=== PATIENT | male | born 1950 | race Two or more races ===

== ENCOUNTER 2024-08-07 14:47 | Inpatient (IN) | payer BC, MEDICAID ==
[~2024-08-07] VITALS: Ht 182.9 cm; Wt 131.4 kg
[2024-08-07 15:59] LABS: Basophils # (auto) 0.1 10 ^3/uL (0-0.2); Basophils % (auto) 1.4 % (0.0-2.0); Eosinophils # (auto) 0 10 ^3/uL (0-0.8); Eosinophils % (auto) 0.6 % (0.0-7.0); Hematocrit 35.8 % (41.0-53.0); Hemoglobin 12.1 g/dL (13.5-17.5); Lymphocytes # (auto) 1.4 10 ^3/uL (0.4-5.4); Lymphocytes % (auto) 28.8 % (10.0-50.0); Mean Corpuscular Hemoglobin 32.7 pg (28.0-32.0); Mean Corpuscular Hgb Conc. 33.9 g/dL (32.0-36.0); Mean Corpuscular Volume 96.4 fL (80.0-100.0); Monocytes # (auto) 0.6 10 ^3/uL (0-1.3); Monocytes % (auto) 11.7 % (0.0-12.0); Neutrophils # (auto) 2.7 10 ^3/uL (1.6-8.6); Neutrophils % (auto) 57.5 % (37.0-80.0); Nucleated Red Blood Cells % 0.4 %; Platelet Count (auto) 215 10^3/uL (140-450); Red Blood Cells 3.71 10^6/uL (4.5-5.90); Red Cell Distribution Width 14.3 % (11.8-14.3); White Blood Cell 4.8 10^3/uL (4.4-10.8)
[2024-08-07 16:16] LABS: INR 1.25 (0.9-1.15); Partial Thromboplastin Time 28.3 SEC (24.5-34.5)
[2024-08-07 16:21] LABS: Alanine Aminotransferase 31 U/L (7-40); Albumin 3.4 g/dL (3.2-4.8); Alkaline Phosphatase 82 U/L (46-116); Anion Gap 7 (5-15); Aspartate Aminotransferase 28 U/L (13-40); BUN/Creatinine Ratio 23.1 (10.0-20.0); Calcium 9.7 mg/dL (8.7-10.4); Chloride 100 mmol/L (98-107); Magnesium 1.9 mg/dL (1.6-2.6); Potassium 3.8 mmol/L (3.5-5.1); Sodium 139 mmol/L (136-145)
[2024-08-07 16:22] LABS: Bilirubin, Total 0.5 mg/dL (0.2-1.0); Total Protein 6.6 g/dL (5.7-8.2)
[2024-08-07 16:23] LABS: Blood Urea Nitrogen 27 mg/dL (9-23); Carbon Dioxide 32 mmol/L (20-31); Glucose 134 mg/dL (74-106)
--- NOTE | 2024-08-07 16:26 | DVH ---
XY CHEST PORTABLE, HISTORY: sob COMPARISON: None None TECHNICAL DATA: 1 view of the chest was obtained. FINDINGS: Lines and tubes: There is a cardiac pacer. Cardiomediastinal silhouette: Prominent Pulmonary vasculature: Prominent Lung expansion: low Lung airspace: Patchy right basilar opacity Lung interstitium: increased Pleura: normal Pneumothorax: no Bones: Unremarkable Other: no IMPRESSION: Cardiomegaly with pulmonary vascular congestion. Patchy right basilar opacity.
--- NOTE | 2024-08-07 16:59 | ED.PDOC ---
History of Present Illness HPI Comments 73 y/o M, with a Hx of CHF, HTN, and morbid obesity, presents with c/o bilateral leg swelling, today. Patient endorses on having leg swelling that extends from his ankles to his thighs and hips for the past 4x months that has been progressively worsening since initial gradual and unprovoked onset. He states on being seen, evaluated, admitted for COPD, and leaving [facility] from [facility] for symptoms 1x week ago. He admits to Hx of lasix use. He denies having any chest pain, shortness of breath, weakness, numbness, or pain to his legs, or other associated symptoms or modifiers at this time. Chief Complaint: Lower Extremity Time Seen by MD: 15:50 Primary Care Provider: none Reviewed Notes: Nurses Notes, Medications, Allergies Information Source: Patient Mode of Arrival: Wheelchair Severity: Moderate Timing: Hours Duration: Since onset Prehospital treatment: None Past Medical History PAST MEDICAL HISTORY: CHF, HTN Past Medical History (Other): morbid obesity Surgical History: Denies all surgeries Family History Family History: Unknown Social History Smoker: Non-Smoker Alcohol: Denies ETOH Use Drugs: Denies Drug Use Lives In: Home Other wheelchair use Musculoskeletal: reports: others (bilateral leg edema ) All Other Systems: Reviewed and Negative (negative unless otherwise stated above or in HPI) Physical Exam General Appearance: No Apparent Distress, Obese HEENT: Normal ENT Inspection, Pharynx Normal, TMs Normal Neck: Full Range of Motion, Non-Tender, Normal, Normal Inspection Respiratory: Chest Non-Tender, Lungs Clear, No Accessory Muscle Use, No Respiratory Distress, Normal Breath Sounds Cardiovascular: No Edema, No JVD, No Murmur, No Gallop, Normal Peripheral Pulses, Regular Rate/Rhythm Breast Exam: Deferred Gastrointestinal: No Organomegaly, Non Tender, No Pulsatile Mass, Normal Bowel Sounds, Soft Genitalia: Deferred Pelvic: Deferred Rectal: Deferred Extremities: Leg edema (bilateral pitting edema ), No calf tenderness, Normal capillary refill, No pedal edema, Swelling (swelling extending from ankles to thighs and hips ) Musculoskeletal : Apperance: Normal Neurologic: Alert, powder blender II-XII nml as Tested, No Motor Deficits, Normal Affect, Normal Mood, No Sensory Deficits Cerebellar Function: Normal Reflexes: Normal Skin: Dry, Normal Color, Warm Lymphatic: No Adenopathy Was a procedure done? Was a procedure done?: No Differential Dx Considerations may include: NSTEMI, CHF exacerbation, PE, ACS, cellulitis, dermatitis, X-Ray, Labs, Meds, VS Vital Signs Date Time Temp Pulse Resp B/P (MAP) Pulse Ox O2 Delivery O2 Flow Rate FiO2 08/07/24 15:11 97.5 93 20 117/63 (81) 95 Lab Test 08/07/24 16:28 08/07/24 15:45 Range/Units Troponin I High Sensitivity Pending 114 *H </=54 ng/L White Blood Count 4.8 4.4-10.8 10^3/uL Red Blood Count 3.71 L 4.5-5.90 10^6/uL Hemoglobin 12.1 L 13.5-17.5 g/dL Hematocrit 35.8 L 41.0-53.0 % Mean Corpuscular Volume 96.4 80.0-100.0 fL Mean Corpuscular Hemoglobin 32.7 H 28.0-32.0 pg Mean Corpuscular Hemoglobin Concent 33.9 32.0-36.0 g/dL Red Cell Distribution Width 14.3 11.8-14.3 % Platelet Count 215 140-450 10^3/uL Mean Platelet Volume 6.7 L 6.9-10.8 fL Neutrophils (%) (Auto) 57.5 37.0-80.0 % Lymphocytes (%) (Auto) 28.8 10.0-50.0 % Monocytes (%) (Auto) 11.7 0.0-12.0 % Eosinophils (%) (Auto) 0.6 0.0-7.0 % Basophils (%) (Auto) 1.4 0.0-2.0 % Neutrophils # (Auto) 2.7 1.6-8.6 10 ^3/uL Lymphocytes # (Auto) 1.4 0.4-5.4 10 ^3/uL Monocytes # (Auto) 0.6 0-1.3 10 ^3/uL Eosinophils # (Auto) 0 0-0.8 10 ^3/uL Basophils # (Auto) 0.1 0-0.2 10 ^3/uL Nucleated Red Blood Cells 0.4 % Prothrombin Time 13.0 H 9.3-11.8 sec Prothrombin Time INR 1.25 H 0.9-1.15 Activated Partial Thromboplast Time 28.3 24.5-34.5 SEC D-Dimer, Quantitative 1.83 H 0.0-0.49 mg/L FEU Sodium Level 139 136-145 mmol/L Potassium Level 3.8 3.5-5.1 mmol/L Chloride Level 100 98-107 mmol/L Carbon Dioxide Level 32 H 20-31 mmol/L Anion Gap 7 5-15 Blood Urea Nitrogen 27 H 9-23 mg/dL Creatinine 1.17 0.700-1.30 mg/dL Glomerular Filtration Rate Calc 66 >90 mL/min BUN/Creatinine Ratio 23.1 H 10.0-20.0 Serum Glucose 134 H 74-106 mg/dL Calcium Level 9.7 8.7-10.4 mg/dL Magnesium Level 1.9 1.6-2.6 mg/dL Total Bilirubin 0.5 0.2-1.0 mg/dL Aspartate Amino Transferase (AST) 28 13-40 U/L Alanine Aminotransferase (ALT) 31 7-40 U/L Alkaline Phosphatase 82 46-116 U/L B-Type Natriuretic Peptide 636.38 0-100 pg/mL Total Protein 6.6 5.7-8.2 g/dL Albumin 3.4 3.2-4.8 g/dL X-Ray, Labs, Meds, VS Comment This 52-year-old male presents secondary to increasing bilateral lower extremity edema. The patient uses a wheelchair. He was noted to have profound edema to his lower extremities up to his thighs. His x-ray was suggestive of CHF. He had elevated troponin. Secondary to his profound CHF and NSTEMI, he will be admitted to the hospitalist service for further workup and management. Time of 1ST Reevaluation: 16:20 Reevaluation 1ST: Unchanged Patient Education/Counseling: Diagnosis, Treatment Family Education/Counseling: No Family Present Departure 1 Departure Time of Disposition: 17:08 Impression: Primary Impression: NSTEMI (non-ST elevated myocardial infarction) Additional Impression: CHF (congestive heart failure) Disposition: 09 ADMITTED INPATIENT Condition: Guarded Critical Care Note Critical Care Time?: No Stability Stability form required: No Heart Score Heart Score: Heart Score Response (Comments) Value History Moderate Suspicious 1 Age >65 2 Risk Factors >3 or Hx ASHD 2 Troponin 1-2 x's Normal limit 1 Total 6 I personally scribed for FELY FLORES MD ([email or web address]) on 08/07/24 at 16:59. Electronically submitted by Ronald Garnica [email or web address]). FELY FLORES MD Aug 07, 2024 16:59
--- NOTE | 2024-08-07 17:47 | ECG ---
[facility] Test Date: 2024-08-07 Test Time: 17:38:47 Pat Name: JAYME QUEEN Department: ER Room: 0296T Gender: M Stogy Roller: PATRIZIA : 1950 Requested By: EFLY FLORES Order Number: [id number] Reading MD: Juancarlos Wu Measurements Intervals [place] Rate: 93 P: 0 [place]: 140 QRS: -71 QRSD: 74 T: 86 QT: 488 QTc: 608 Interpretive Statements Ventricular-paced complexes No further rhythm analysis attempted due to paced rhythm Left anterior fascicular block Low voltage, precordial leads Borderline T abnormalities, lateral leads Prolonged QT interval Baseline wander in lead(s) I,II,aVR,aVL,V1,V4 Electronically Signed On 08-09-2024 13:07:30 PST by Juancarlos Wu Please click the below link to view image of tracing.
[2024-08-07] MEDS ORDERED: ACETAMINOPHEN 325 MG TAB PO PRN (19:30)
[2024-08-07] MEDS ORDERED: MORPHINE SULFATE INJ 2 MG/ml SYRG IV PRN (19:30)
[2024-08-07] MEDS ORDERED: ONDANSETRON HCL 4 MG/2 ML VIAL IV PRN (19:30)
[2024-08-07] MEDS ORDERED: NITROGLYCERIN 0.4 MG SL TAB SL PRN (19:30)
[2024-08-07 20:00] VITALS: PULSE 86; RESP 18; O2SAT 96
[2024-08-07 22:06] VITALS: BP 117/63; PULSE 93; RESP 18; TEMP 98.1; O2SAT 95
[2024-08-07] MEDS: CARVEDILOL 3.125 MG TAB PO SCH (22:10)
[2024-08-07] MEDS: ATORVASTATIN 20 MG TAB PO SCH (22:10)
[2024-08-07] MEDS: FUROSEMIDE 40 MG/4 ML VIAL IV ONE (22:11)
[2024-08-07 23:30] LABS: Urine Bacteria None Seen /hpf (None Seen)
[2024-08-07 23:37] LABS: Urine Blood Negative /uL (Negative); Urine Clarity Clear (Clear); Urine Color Yellow (Yellow); Urine Protein, UAD Negative (Negative); Urine Specific Gravity 1.015 (1.001-1.035); Urine Squamous Epithelial Cell None Seen /hpf (<5); Urine Urobilinogen Normal (Negative); Urine WBC 1 /hpf (0 - 3); Urine pH 5.5 (5.0-9.0)
[2024-08-08] VITALS (8 sets, daily range): PULSE 85–100; RESP 15–20; O2SAT 95–100
[2024-08-08] MEDS: guaiFENesin-DM 100/10mg/5ml SYR PO PRN (00:44)
[2024-08-08] MEDS: ALBUTEROL SULF 2.5 MG/0.5ML(0.5%) NEB SOLN NEB PRN (04:36)
--- NOTE | 2024-08-08 04:45 | DVHHP2 ---
History of Present Illness Reason for Visit: Leg swelling History of Present Illness 73-year-old with a history of congestive heart failure presents for evaluation bilateral leg swelling. Patient reports a three day history worsening bilateral lower extremity swelling. He currently denies chest pain or shortness for breath. Denies a productive cough. Abdominal pain. Past Medical History Congestive heart failure hypertension Past Surgical History Denies Family History Noncontributory Smoke: No ALCOHOL: none Drugs: None Lives: with Family Review of Systems Review of Systems Review of systems are currently negative otherwise addressed HPI. Allergies: Coded Allergies: NO KNOWN ALLERGIES (Unverified , 08/07/24) Medications Current Medications Medications Dose Ordered Sig/Toni Route Start Time Stop Time Status Last Admin Dose Admin Carvedilol 3.125 mg Q12HR PO 08/07/24 22:00 08/07/24 22:10 3.125 MG Lisinopril 5 mg DAILY PO 08/08/24 10:00 Furosemide 20 mg BIDD IV 08/08/24 06:00 Aspirin 162 mg DAILY PO 08/08/24 10:00 Atorvastatin Calcium 10 mg HS PO 08/07/24 22:00 08/07/24 22:10 10 MG Azithromycin 250 ml @ 125 mls/hr DAILY IV 08/08/24 10:00 Albuterol 2.5 mg Q6HPRN PRN NEB 08/07/24 19:30 08/08/24 04:36 2.5 MG Ondansetron HCl 4 mg Q4HP PRN IV 08/07/24 19:30 Enoxaparin Sodium 40 mg DAILY SC 08/08/24 10:00 Acetaminophen 650 mg Q6HP PRN PO 08/07/24 19:30 Nitroglycerin 0.4 mg Q5MINP PRN SL 08/07/24 19:30 Morphine Sulfate 2 mg Q30M PRN IV 08/07/24 19:30 Guaifenesin/ Dextromethorphan 10 ml Q4HP PRN PO 08/08/24 00:15 Exam Vital Signs Vital Signs Date Time Temp Pulse Resp B/P (MAP) Pulse Ox O2 Delivery O2 Flow Rate FiO2 08/08/24 04:38 100 20 99 08/08/24 00:30 145/92 (109) 08/07/24 22:06 Room Air* 0 21 08/07/24 22:06 98.1 98.1 Exam Gen: 73-year-old male in mild distress Skin: Warm, dry, normal color and texture, no rash. HEENT: Normocephalic atraumatic, mucous membranes moist and pink. Neck: Cervical and supraclavicular nodes normal without enlargement, trachea is midline, thyroid gland is normal without masses. Pulmonary: Clear to auscultation and percussion bilaterally. Cardiac: Regular rate and rhythm. No murmur Abdomen: Soft, nontender, nondistended, bowel sounds present all 4 quadrants, no guarding, no rigidity, no organomegaly. Extremities: No cyanosis, clubbing, plus two bilateral pedal edema. Neuro: Cranial nerves II through XII grossly intact, normal affect and speech, no focal motor deficits. Labs/Xrays ORDERING PHYSICIAN: FELY FLORES MD PROCEDURE(s): CXRP - CHEST PORTABLE REASON: sob ORDER NUMBER(s): [id number], ACCESSION NUMBER(s): [id number] XY CHEST PORTABLE, HISTORY: sob COMPARISON: None None TECHNICAL DATA: 1 view of the chest was obtained. FINDINGS: Lines and tubes: There is a cardiac pacer. Cardiomediastinal silhouette: Prominent Pulmonary vasculature: Prominent Lung expansion: low Lung airspace: Patchy right basilar opacity Lung interstitium: increased Pleura: normal Pneumothorax: no Bones: Unremarkable Other: no IMPRESSION: Cardiomegaly with pulmonary vascular congestion. Patchy right basilar opacity. Labs Test 08/07/24 23:30 08/07/24 18:35 08/07/24 15:45 Range/Units Urine Color Yellow Yellow Urine Clarity Clear Clear Urine pH 5.5 5.0-9.0 Urine Specific [place] 1.015 1.001-1.035 Urine Protein Negative Negative Urine Ketones Negative Negative Urine Blood Negative Negative /uL Urine Nitrite Negative Negative Urine Bilirubin Negative Negative Urine Urobilinogen Normal Negative mg/dL Urine Leukocyte Esterase Negative Negative /uL Urine RBC 1 0 - 3 /hpf Urine WBC 1 0 - 3 /hpf Urine Squamous Epithelial Cells None seen <5 /hpf Urine Bacteria None seen None Seen /hpf Urine Glucose Normal Normal mg/dL Troponin I High Sensitivity 109 *H </=54 ng/L White Blood Count 4.8 4.4-10.8 10^3/uL Red Blood Count 3.71 L 4.5-5.90 10^6/uL Hemoglobin 12.1 L 13.5-17.5 g/dL Hematocrit 35.8 L 41.0-53.0 % Mean Corpuscular Volume 96.4 80.0-100.0 fL Mean Corpuscular Hemoglobin 32.7 H 28.0-32.0 pg Mean Corpuscular Hemoglobin Concent 33.9 32.0-36.0 g/dL Red Cell Distribution Width 14.3 11.8-14.3 % Platelet Count 215 140-450 10^3/uL Mean Platelet Volume 6.7 L 6.9-10.8 fL Neutrophils (%) (Auto) 57.5 37.0-80.0 % Lymphocytes (%) (Auto) 28.8 10.0-50.0 % Monocytes (%) (Auto) 11.7 0.0-12.0 % Eosinophils (%) (Auto) 0.6 0.0-7.0 % Basophils (%) (Auto) 1.4 0.0-2.0 % Neutrophils # (Auto) 2.7 1.6-8.6 10 ^3/uL Lymphocytes # (Auto) 1.4 0.4-5.4 10 ^3/uL Monocytes # (Auto) 0.6 0-1.3 10 ^3/uL Eosinophils # (Auto) 0 0-0.8 10 ^3/uL Basophils # (Auto) 0.1 0-0.2 10 ^3/uL Nucleated Red Blood Cells 0.4 % Prothrombin Time 13.0 H 9.3-11.8 sec Prothrombin Time INR 1.25 H 0.9-1.15 Activated Partial Thromboplast Time 28.3 24.5-34.5 SEC D-Dimer, Quantitative 1.83 H 0.0-0.49 mg/L FEU Sodium Level 139 136-145 mmol/L Potassium Level 3.8 3.5-5.1 mmol/L Chloride Level 100 98-107 mmol/L Carbon Dioxide Level 32 H 20-31 mmol/L Anion Gap 7 5-15 Blood Urea Nitrogen 27 H 9-23 mg/dL Creatinine 1.17 0.700-1.30 mg/dL Glomerular Filtration Rate Calc 66 >90 mL/min BUN/Creatinine Ratio 23.1 H 10.0-20.0 Serum Glucose 134 H 74-106 mg/dL Calcium Level 9.7 8.7-10.4 mg/dL Magnesium Level 1.9 1.6-2.6 mg/dL Total Bilirubin 0.5 0.2-1.0 mg/dL Aspartate Amino Transferase (AST) 28 13-40 U/L Alanine Aminotransferase (ALT) 31 7-40 U/L Alkaline Phosphatase 82 46-116 U/L B-Type Natriuretic Peptide 636.38 0-100 pg/mL Total Protein 6.6 5.7-8.2 g/dL Albumin 3.4 3.2-4.8 g/dL Assessment/Plan Assessment/Plan Assessment acute on chronic congestive heart failure elevated troponin, downtrending Hypertension Plan Admit the patient to telemetry to the hospitalist Cardiology consultation Echocardiogram pending Resume home medications Continue treatment per orders Plan discussed with: Patient My Orders Orders - ROSANNA BARBER AGACNP Procedure Category Date Status Time Carvedilol Tablet PHA 08/07/24 In Process (Coreg Tablet) 22:00 Lisinopril Tablet PHA 08/08/24 In Process (Zestril Tablet) 10:00 Furosemide Injection PHA 08/08/24 In Process (Lasix Injection) 06:00 Aspirin Tablet PHA 08/08/24 In Process 10:00 Atorvastatin (Lipitor) PHA 08/07/24 In Process 22:00 * Cardiology Consult CONS 08/07/24 Transmitted 19:27 Azithromycin 500mg/ PHA 08/08/24 In Process 250ml (Zithromax 50 10:00 Albuterol Medneb PHA 08/07/24 In Process (Ventolin Medneb) 19:30 Basic Metabolic Panel LAB 08/08/24 Logged 04:00 Admit ADMIT 08/07/24 Transmitted 19:27 Ondansetron Hcl PHA 08/07/24 In Process (Zofran) 19:30 Enoxaparin Sodium PHA 08/08/24 In Process (Lovenox) 10:00 Cardiac DIET 08/08/24 Transmitted Diet-2gna,Lofat,Lochol Breakfast Echo 2d Mode Cardiac US 08/07/24 Logged DOP 19:27 Condition: Fair ALAN 08/07/24 In Process 19:27 Acetaminophen Tablet PHA 08/07/24 In Process (Tylenol Tablet) 19:30 Bedrest With Bathroom ALAN 08/07/24 In Process Privileg 19:27 Nitroglycerin [facility] 08/07/24 In Process Sublingual (Ntrostat 19:30 Morphine Sulfate PHA 08/07/24 In Process Injection 19:[address] [facility] 08/07/24 In Process Pain 19:27 Notify Md Of Changes [facility] 08/07/24 In Process From Base 19:27 Leaf Sucker Operator For [facility] 08/07/24 In Process 24 Hours 19:[address] [facility] 08/07/24 In Process Protocol 19:[address] [facility] 08/07/24 In Process Every Shift 19:27 Oxygen By Nasal RT 08/07/24 Transmitted Cannula 19:27 Guaifenesin-Dextromet [facility] 08/08/24 In Process Liquid (Robitussin 00:15 Bilat Lower Dvt 08/08/24 Logged 00:08 Date of Service: Aug 07, 2024 Billing Provider: ROSANNA BARBER Common Visit Codes: [id number] INP/OBS CARE (HIGH) ROSANNA BARBER Aug 08, 2024 04:45
[2024-08-08 05:55] LABS: Anion Gap 9 (5-15); Chloride 99 mmol/L (98-107); Potassium 3.6 mmol/L (3.5-5.1); Sodium 139 mmol/L (136-145)
[2024-08-08 05:57] LABS: Calcium 9.8 mg/dL (8.7-10.4)
[2024-08-08 06:01] LABS: Glucose 104 mg/dL (74-106)
[2024-08-08 06:03] LABS: Blood Urea Nitrogen 24 mg/dL (9-23); Carbon Dioxide 31 mmol/L (20-31)
[2024-08-08] MEDS: FUROSEMIDE 20 MG/2 ML VIAL IV SCH ×2 (06:10→18:01)
--- NOTE | 2024-08-08 07:35 | DVH ---
Bilateral lower extremity venous duplex Clinical History: edema Comparison: None Technique: Duplex Doppler evaluation of the deep venous systems of both lower extremities from the common femora l veins to the popliteal veins including color Doppler and spectral/pulsed waveform analysis was perf ormed. Findings: RIGHT SIDE: The common femoral vein demonstrates appropriate compressibility and waveform variability. There is compressibility/patency of the great saphenous vein at the proximal thigh. The femoral vein demonstrates appropriate compressibility and waveform variability. The deep femoral vein demonstrates appropriate compressibility and waveform variability. The popliteal vein demonstrates appropriate compressibility and waveform variability. There is normal compressibility at the tibioperoneal trunk. LEFT SIDE: The common femoral vein demonstrates appropriate compressibility and waveform variability. There is compressibility/patency of the great saphenous vein at the proximal thigh. The femoral vein demonstrates appropriate compressibility and waveform variability. The deep femoral vein demonstrates appropriate compressibility and waveform variability. The popliteal vein demonstrates appropriate compressibility and waveform variability. There is normal compressibility at the tibioperoneal trunk. Impression: No right or left femoropopliteal venous thrombosis.
[2024-08-08] MEDS: ASPirin 81 mg TAB PO SCH (09:50)
[2024-08-08] MEDS: LISINOPRIL 5 MG TAB PO SCH (09:51)
[2024-08-08] MEDS: ENOXAPARIN SOD 40 MG/0.4 ML SYRINGE SC SCH (09:52)
[2024-08-08] MEDS: AZITHROMYCIN 500MG/ 250ML 250 ML IV SCH (09:53)
--- NOTE | 2024-08-08 11:27 | DVH ---
CHEST RADIOGRAPH Indication: CHF pulmonary congestion Technique: Single frontal view of the chest was obtained Comparison: XY CHEST PORTABLE on DOS: 08/07/24 FINDINGS: Lines and Tubes: None Lungs: No focal consolidation. Pleura: No effusion. No pneumothorax. Cardiomediastinal contours: Cardiomegaly Bones: No acute osseous abnormality. IMPRESSION: Cardiomegaly with CHF
[2024-08-08 11:29] LABS: Triglycerides 64 mg/dL (< 150)
[2024-08-08 11:30] LABS: Cholesterol 95 mg/dL (< 200); LDL Cholesterol 33 mg/dL (< 100)
[2024-08-08 11:32] LABS: HDL Cholesterol 50 mg/dL (40-59)
--- NOTE | 2024-08-08 11:33 | DVH ---
EXAM: CT HEAD WITHOUT CONTRAST HISTORY: confusion COMPARISON: None TECHNIQUE: Axial images of the head were obtained and reformatted in coronal and sagittal planes. All CT scans at this medical facility are performed using dose modulation techniques as appropriate t o a performed exam including the following: Automated exposure control was utilized; adjustment of th e MA and/or KV according to patient size; and use of iterative reconstruction technique. CT Dose: CTDI volume is 69 mGy. 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 Ther e is a wedge parenchymal defect in the right posterolateral cerebellum which may represent additional chronic infarct. There are moderate to severe chronic small-vessel ischemic changes in the supratent orial white matter. There is no evidence of acute intracranial hemorrhage, mass, mass effect midline shift. There is no hydrocephalus or extra-axial fluid collection. There are retention cysts in the right maxillary sinus. Mastoid air cells are clear. The calvarium is intact. IMPRESSION: 1. No acute intracranial process. 2. Chronic ischemic changes as described above. HS:Y
[2024-08-08] MEDS: LIDOCAINE 2% TOPICAL JELLY 5 ML URJT TOP ONE (12:02)
[2024-08-08] MEDS: FUROSEMIDE 20 MG/2 ML VIAL IV ONE (12:18)
[2024-08-08] MEDS ORDERED: DEXTROSE (50%) 50ML SYRG IV PRN (12:30)
--- NOTE | 2024-08-08 13:17 | DVHCONRES ---
Date Seen: Aug 08, 2024 Resident Creating Document: ELDON CORTÉS RESIDENT Referring Physician Gerard Shen NP History of Present Illness This is a 73-year-old man with a past medical history of CHF, hypertension, pacemaker ( [employer] 2008,) and COPD presented to the ED with a chief complaint of bilateral lower extremity swelling and scrotal edema. According to the patient, he started experience the swelling about 3 days ago and it continues to get worse and it progress proximally and currently his scrotum is involved. Patient did mentioned that he ran out of his Lasix for the past 5 days. Whilst speaking with the patient, his brother was at the bedside. The brother mentioned that patient recently moved from [place] to stay with him. In [place], he was seeing a accountant systems but sure the diagnosis for which was being managed for. Brother also mention that the patient seemed to be confused and does not seem to remember quiet a bit from how he used to know him few years ago. Initial vitals in the ED revealed blood pressure of 117/63, heart rate of 19, RR of 20, and temperature 97.5. Twelve lead EKG shows ventricular paced rhythm with underlying AFib. Lab values showed, mildly elevated troponin of 114---> 109. Past Medical History Congestive heart failure, hypertension, AFib, COPD Past Surgical History Pacemaker implantation, 2008 Family History Both have both parents have heart problems Social History 10 pack years Alcohol half a pt every other day Allergies: Coded Allergies: NO KNOWN ALLERGIES (Unverified , 08/07/24) Current Medications Current Medications Medications (Trade) Dose Ordered Sig/Toni Route PRN Reason Start Time Stop Time Status Last Admin Carvedilol (Coreg Tablet) 3.125 mg Q12HR PO 08/07/24 22:00 08/08/24 09:52 Lisinopril (Zestril Tablet) 5 mg DAILY PO 08/08/24 10:00 08/08/24 09:51 Furosemide (Lasix Injection) 20 mg BIDD IV 08/08/24 06:00 08/08/24 10:46 DC 08/08/24 06:10 Aspirin 162 mg DAILY PO 08/08/24 10:00 08/08/24 09:50 Atorvastatin Calcium (Lipitor) 10 mg HS PO 08/07/24 22:00 08/07/24 22:10 Azithromycin 250 ml @ 125 mls/hr DAILY IV 08/08/24 10:00 08/08/24 09:53 Albuterol (Ventolin Medneb) 2.5 mg Q6HPRN PRN NEB SHORTNESS OF BREATH 08/07/24 19:30 08/08/24 12:24 DC 08/08/24 04:36 Ondansetron HCl (Zofran) 4 mg Q4HP PRN IV NAUSEA / VOMITING 08/07/24 19:30 Enoxaparin Sodium (Lovenox) 40 mg DAILY SC 08/08/24 10:00 08/08/24 09:52 Acetaminophen (Tylenol Tablet) 650 mg Q6HP PRN PO PAIN SCALE 1-3 OR TEMP>100.4 08/07/24 19:30 Nitroglycerin (Ntrostat Sublingual) 0.4 mg Q5MINP PRN SL FOR CHEST PAIN 08/07/24 19:30 Morphine Sulfate 2 mg Q30M PRN IV FOR CHEST PAIN 08/07/24 19:30 Guaifenesin/ Dextromethorphan (Robitussin-Dm Liquid) 10 ml Q4HP PRN PO FOR COUGH 08/08/24 00:15 Furosemide (Lasix Injection) 40 mg BIDD IV 08/08/24 18:00 Albuterol (Ventolin Medneb) 2.5 mg Q6HR NEB 08/08/24 12:30 Diagnostic Test (Pha) (Accu-Chek Comfort Curve T) 1 strip ACHS 08/08/24 17:00 UNV Insulin Human Regular (InsuLIN R) ACHS SC 08/08/24 17:00 UNV Dextrose 50 ml UD PRN IV Blood Sugar LESS THAN 60 08/08/24 12:30 UNV Sacubitril/ Valsartan (Entresto 24-26 Mg tab) 1 tab BID PO 08/08/24 22:00 UNV Spironolactone (Aldactone) 25 mg DAILY PO 08/09/24 10:00 UNV Empaglifozin (Jardiance) 10 mg DAILY PO 08/09/24 10:00 UNV Review of Systems Constitutional: Denies fever no chills no feeling of malaise HEENT: Denies headache, ear pain, ear discharges, conjunctivitis, nasal discharge throat pain Cardiovascular: Denies chest pain, palpitation, orthopnea, PND, or pedal edema Respiratory: Denies shortness of breath, cough cough, sputum production, hemoptysis, GI: Denies abdominal pain, nausea, vomiting, diarrhea, hematemesis, hematochezia, : scrotal edema, pain, Endocrine: Denies unintentional weight gain or weight loss, feeling of hot flashes, Nitin: Denies easy bruising, bleeding disorders, epistaxis Musculoskeletal: Denies joint pains, muscle aches Psych: No evidence of depression, margaux, suicidal ideation Vital Signs Vital Signs Date Time Temp Pulse Resp B/P (MAP) Pulse Ox O2 Delivery O2 Flow Rate FiO2 08/08/24 12:18 111/48 08/08/24 12:00 74 08/08/24 11:20 18 96 08/08/24 07:34 98.4 98.4 08/08/24 07:34 Nasal Cannula* 3 32 Physical Exam General examination- Moderate acute distress on 3L Oxygen. does not use oxygen at home HEENT: PEERLA, no acute nasal discharge Chest: irregularly irregular rhythm and rate, no murmur Lung: wheeze or rhonchi Abdomen: Distend, BS+, nontenderness, no organomegaly Musculoskeletal: no acute joint swelling or tenderness Lower extremity: no leg edema Neurological: cranial nerves intact, no acute dysarthria or dysphagia Psychiatry-- Normal mood and affect Skin- no acute rash or purpura Labs/Diagnostic Data Labs Test 08/08/24 05:22 08/07/24 23:30 08/07/24 18:35 08/07/24 15:45 Range/Units Sodium Level 139 136-145 mmol/L Potassium Level 3.6 3.5-5.1 mmol/L Chloride Level 99 98-107 mmol/L Carbon Dioxide Level 31 20-31 mmol/L Anion Gap 9 5-15 Blood Urea Nitrogen 24 H 9-23 mg/dL Creatinine 0.96 0.700-1.30 mg/dL Glomerular Filtration Rate Calc 83 >90 mL/min BUN/Creatinine Ratio 25.0 H 10.0-20.0 Serum Glucose 104 74-106 mg/dL Hemoglobin A1c 6.7 H <5.7 % A1C Calcium Level 9.8 8.7-10.4 mg/dL Triglycerides Level 64 < 150 mg/dL Cholesterol Level 95 < 200 mg/dL LDL Cholesterol 33 < 100 mg/dL HDL Cholesterol 50 40-59 mg/dL Thyroid Stimulating Hormone (TSH) 1.27 0.55-4.78 uIU/mL Urine Color Yellow Yellow Urine Clarity Clear Clear Urine pH 5.5 5.0-9.0 Urine Specific [place] 1.015 1.001-1.035 Urine Protein Negative Negative Urine Ketones Negative Negative Urine Blood Negative Negative /uL Urine Nitrite Negative Negative Urine Bilirubin Negative Negative Urine Urobilinogen Normal Negative mg/dL Urine Leukocyte Esterase Negative Negative /uL Urine RBC 1 0 - 3 /hpf Urine WBC 1 0 - 3 /hpf Urine Squamous Epithelial Cells None seen <5 /hpf Urine Bacteria None seen None Seen /hpf Urine Glucose Normal Normal mg/dL Troponin I High Sensitivity 109 *H </=54 ng/L White Blood Count 4.8 4.4-10.8 10^3/uL Red Blood Count 3.71 L 4.5-5.90 10^6/uL Hemoglobin 12.1 L 13.5-17.5 g/dL Hematocrit 35.8 L 41.0-53.0 % Mean Corpuscular Volume 96.4 80.0-100.0 fL Mean Corpuscular Hemoglobin 32.7 H 28.0-32.0 pg Mean Corpuscular Hemoglobin Concent 33.9 32.0-36.0 g/dL Red Cell Distribution Width 14.3 11.8-14.3 % Platelet Count 215 140-450 10^3/uL Mean Platelet Volume 6.7 L 6.9-10.8 fL Neutrophils (%) (Auto) 57.5 37.0-80.0 % Lymphocytes (%) (Auto) 28.8 10.0-50.0 % Monocytes (%) (Auto) 11.7 0.0-12.0 % Eosinophils (%) (Auto) 0.6 0.0-7.0 % Basophils (%) (Auto) 1.4 0.0-2.0 % Neutrophils # (Auto) 2.7 1.6-8.6 10 ^3/uL Lymphocytes # (Auto) 1.4 0.4-5.4 10 ^3/uL Monocytes # (Auto) 0.6 0-1.3 10 ^3/uL Eosinophils # (Auto) 0 0-0.8 10 ^3/uL Basophils # (Auto) 0.1 0-0.2 10 ^3/uL Nucleated Red Blood Cells 0.4 % Prothrombin Time 13.0 H 9.3-11.8 sec Prothrombin Time INR 1.25 H 0.9-1.15 Activated Partial Thromboplast Time 28.3 24.5-34.5 SEC D-Dimer, Quantitative 1.83 H 0.0-0.49 mg/L FEU Magnesium Level 1.9 1.6-2.6 mg/dL Total Bilirubin 0.5 0.2-1.0 mg/dL Aspartate Amino Transferase (AST) 28 13-40 U/L Alanine Aminotransferase (ALT) 31 7-40 U/L Alkaline Phosphatase 82 46-116 U/L B-Type Natriuretic Peptide 636.38 0-100 pg/mL Total Protein 6.6 5.7-8.2 g/dL Albumin 3.4 3.2-4.8 g/dL Assessment Acute on chronic HFr EF 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 --> Increase diuresis to 40mg BID --> Generalized edema --> Strict I&O --> daily weight --> Initiate GDMT (Coreg, spironolactone, lisinopril, Jardiance) NSTEMI type II --> Troponin 114--> 109 --> management of the underlying pathology Presence of pacemaker ([id number]) --> Interrogated today --> 1 year battery life left Possible paroxysmal atrial fibrillation --> Continue eliquis Cardiomegaly --> Chest x-ray: Cardiomegaly with CHF Possible early pneumonia --> Continue antibiotics per primary treatment Acute hypoxic respiratory failure --> No history oxygen use at home --> on 3L of oxygen Obesity --> BMI: 37.4 --> This likely not his correct weight Rule out a hydrocele --> Testicular ultrasound Critical care time was more than 45 minute. Thank you for allowing us to participate in the care of this patient. Please call if you have any questions or concerns. Plan discussed with: Patient, Other (brother) Visit Coding Cardiology RES Date of Service: Aug 08, 2024 Billing Provider: CLYDE JERONIMO MD Cardiology Consultation Codes: [id number] CONSULT <45MIN ELDON CORTÉS RESIDENT Aug 08, 2024 13:17
--- NOTE | 2024-08-08 13:21 | DVHPN2 ---
Subjective bilateral leg swelling and shortness of breath Reviewed: H&P, Labs, Medications, Previous Orders Changes from previous H/P or p: No Changes Cardiovascular: Orthopnea, Edema Respiratory: Cough, Shortness of breath, SOB with excertion, Sputum Objective Vitals Vital Signs Date Time Temp Pulse Resp B/P (MAP) Pulse Ox O2 Delivery O2 Flow Rate FiO2 08/08/24 12:18 111/48 08/08/24 12:00 74 08/08/24 11:20 18 96 08/08/24 07:34 98.4 98.4 08/08/24 07:34 Nasal Cannula* 3 32 Exam shortness of Breath with productive cough. bilateral leg edema x 4 months General Appearance: Alert, Oriented X3, Cooperative, No acute distress HEENT: PERRLA Lungs: Clear to auscultation Cardiovascular: Regular rate Abdomen: Normal bowel sounds Extremities: Other (bilateral leg edema ) Skin: Dry, Intact Psych/Mental Status: Mental status NL Medications Current Medications Medications Dose Ordered Sig/Toni Route Start Time Stop Time Status Last Admin Dose Admin Carvedilol 3.125 mg Q12HR PO 08/07/24 22:00 08/08/24 09:52 3.125 MG Lisinopril 5 mg DAILY PO 08/08/24 10:00 08/08/24 09:51 5 MG Aspirin 162 mg DAILY PO 08/08/24 10:00 08/08/24 09:50 162 MG Atorvastatin Calcium 10 mg HS PO 08/07/24 22:00 08/07/24 22:10 10 MG Azithromycin 250 ml @ 125 mls/hr DAILY IV 08/08/24 10:00 08/08/24 09:53 125 MLS/HR Ondansetron HCl 4 mg Q4HP PRN IV 08/07/24 19:30 Enoxaparin Sodium 40 mg DAILY SC 08/08/24 10:00 08/08/24 09:52 40 MG Acetaminophen 650 mg Q6HP PRN PO 08/07/24 19:30 Nitroglycerin 0.4 mg Q5MINP PRN SL 08/07/24 19:30 Morphine Sulfate 2 mg Q30M PRN IV 08/07/24 19:30 Guaifenesin/ Dextromethorphan 10 ml Q4HP PRN PO 08/08/24 00:15 Furosemide 40 mg BIDD IV 08/08/24 18:00 Albuterol 2.5 mg Q6HR NEB 08/08/24 12:30 Laboratory Results Laboratory Tests 08/07/24 15:45 08/08/24 05:22 Chemistry Test 08/07/24 15:45 08/08/24 05:22 Albumin 3.4 g/dL (3.2-4.8) Calcium Level 9.7 mg/dL (8.7-10.4) 9.8 mg/dL (8.7-10.4) Magnesium Level 1.9 mg/dL (1.6-2.6) Total Protein 6.6 g/dL (5.7-8.2) Coagulation Test 08/07/24 15:45 Prothrombin Time 13.0 sec (9.3-11.8) H Prothrombin Time INR 1.25 (0.9-1.15) H Activated Partial Thromboplast Time 28.3 SEC (24.5-34.5) D-Dimer, Quantitative 1.83 mg/L FEU (0.0-0.49) H Lipid panel Test 08/08/24 05:22 Cholesterol Level 95 mg/dL (< 200) HDL Cholesterol 50 mg/dL (40-59) Triglycerides Level 64 mg/dL (< 150) Cardiac Markers Test 08/07/24 15:45 B-Type Natriuretic Peptide 636.38 pg/mL (0-100) LFT Test 08/07/24 15:45 Alanine Aminotransferase (ALT) 31 U/L (7-40) Alkaline Phosphatase 82 U/L (46-116) Aspartate Amino Transferase (AST) 28 U/L (13-40) Total Bilirubin 0.5 mg/dL (0.2-1.0) HgA1c, TSH Test 08/08/24 05:22 Hemoglobin A1c 6.7 % A1C (<5.7) H Thyroid Stimulating Hormone (TSH) 1.27 uIU/mL (0.55-4.78) Urinalysis Test 08/07/24 23:30 Urine Color Yellow (Yellow) Urine Clarity Clear (Clear) Urine pH 5.5 (5.0-9.0) Urine Specific [place] 1.015 (1.001-1.035) Urine Protein Negative (Negative) Urine Ketones Negative (Negative) Urine Blood Negative /uL (Negative) Urine Nitrite Negative (Negative) Urine Bilirubin Negative (Negative) Urine Urobilinogen Normal mg/dL (Negative) Urine Leukocyte Esterase Negative /uL (Negative) Urine RBC 1 /hpf (0 - 3) Urine WBC 1 /hpf (0 - 3) Urine Squamous Epithelial Cells None seen /hpf (<5) Urine Bacteria None seen /hpf (None Seen) Urine Glucose Normal mg/dL (Normal) Labs and/or images reviewed: Labs reviewed by me, Image(s) reviewed by me Assessment/Plan Assessment/Plan 73 year -old male with a past medical history of DM , HTN ,TIA , CHF, PPM was inserted in 2009 , COPD former 30 year smokers was admitted for bilateral leg swelling x 3 days . pt states also having shortness of breath with dyspnea on exertion , also states having cough that is productive phlegm. pt has +4 pitting edema to legs and feet. per the patient recently relocated from [place], [place] when his 4 weeks ago hasn't established care and has no PCP in the area. patient is a poor historian with medications. pt hasn't had a cardiology follow up. Pt denies any chest pain , dizziness, palpitations, syncope,nausea / vomiting, fever. assessment -PMH : DM ,HTN,TIA,CHF,PPM,COPD former smoker -acute on chronic decompensated heart failure -acute on chronic respiratory failure -volume overload -possible underlying atrial fibrillation -obesity Diagnostic test - CXR- pulmonary vascular congestion , cardiomegaly -US ext- negative DVT PLAN -repeat CBC,CMP -repeat CXR -diuresis -Mayo insertion for strict I/O -VASU breathing treatments COPD -DC antibiotic normal WBCs , afebrile - added slide and scale ACHS -spirolactone -jardiance -pending echo -pending influenza and Covid-19 screen -sputum culture -pacemaker check. -consult: cardiology Plan discussed with: Patient, Other (nurse) Date of Service: Aug 08, 2024 Billing Provider: MANNIE KAY NP Common Visit Codes: [id number] INP/OBS CARE(MOD) JUAN PABLO JUAREZ STUDENT HRIS DEVELOPER Aug 08, 2024 13:21
[2024-08-08] MEDS: ALBUTEROL SULF 2.5 MG/0.5ML(0.5%) NEB SOLN NEB SCH (13:28)
[2024-08-08 15:23] LABS: COVID19 ANTIGEN SOFIA FIA NEGATIVE (NEGATIVE); Rapid Influenza A Negative (Negative); Rapid Influenza B Negative (Negative)
--- NOTE | 2024-08-08 15:24 | DVHSR ---
APPROVED REPORT EXAM: Two-dimensional and M-mode echocardiogram with Doppler and color Doppler. Blood Pressure: 142/88 mmHg INDICATION EF Surgery/Intervention Pacemaker: RISK FACTORS Obesity: Height: 6'0", Weight: 275 DIMENSIONS LVDd4.1 (3.8-5.7cm)LA (2D)4.5 (1.9-4.0cm)Aortic Root4.7 (2.0-3.7cm) LVDs3.2 (2.5-4.0cm)LA (MM) (1.9-4.0cm)Aortic Cusp Exc2.1 (1.5-2.0cm) EF (%) 45.0 (55-70%)Rt. Atrium5.9 (1.9-4.0cm)Asc. Aorta4.2 cm IVSd2.0 (0.7-1.1cm)RV (D) (1.8-2.4cm) PWd1.8 (0.7-1.1cm) Mitral Valve MitralMitral Stenosis E wave0.95m/sMV Mean GR.mmHg E/A ratio0.02D MVAcm2 Aortic Valve Aortic ValveAortic Stenosis V11.09m/Albert Mean GR.4mmHg V21.22m/Albert Peak GR.6mmHg LVOT Diameter2.3 (1.8-2.4cm)Doppler AVA3.71cm2 Tricuspid Valve TR Velocity3.17m/s [id number] Other Information Technically limited study due to body habitus. Conclusion Moderately concentric left ventricular hypertrophy. Moderately reduced left ventricular systolic fun ction estimated ejection fraction of 40 %. There is a global wall hypokinesia. Normal right ventricular size and dimension. Moderately reduced right ventricular systolic function. Moderately to severely elevated right ventricular systolic [id number] mm of mercury. Normal biatrial size and dimension. Normal aortic valve structure and function. Normal mitral valve structure and function. Normal tricuspid valve structure and function. The pulmonary valve is grossly normal. No pericardial effusion.
[2024-08-08] MEDS: InsuLIN REG 1unit/0.01ml Soln (100units/ml) SC SCH (17:00)
[2024-08-08] MEDS: ACCU-CHEK COMFORT CURVE STRIP VI SCH (17:02)
[2024-08-08] MEDS ORDERED: SACUBITRIL-VALSARTAN 24mg/26mg TAB PO SCH (22:00)
[2024-08-09] VITALS (15 sets, daily range): BP systolic 111–146; BP diastolic 70–101; PULSE 29–118; RESP 16–22; TEMP 97.9–99; O2SAT 10–100
--- NOTE | 2024-08-09 10:39 | DVH ---
ULTRASOUND OF SCROTUM AND CONTENTS. INDICATION: RULE OUT HYDROCOELE COMPARISON: None TECHNIQUE: Multiple real-time grayscale sonographic and color and duplex Doppler images of the scrotu m and its contents were obtained. FINDINGS: The right testicle measures 4 cm. The left testicle measures 4 cm. Both testicles demonstrate homogeneous echotexture without evidence of focal lesions. The right epididymal head measures 1.4 cm. The left epididymal head measures 1.6 cm. Bilateral epidid ymal cysts measuring up to 6 mm. Subsequent color and duplex Doppler interrogation of the testes demonstrated symmetric normal vascula r flow to both testicles. No focal areas of hyperemia were seen. Diffuse scrotal wall thickening. IMPRESSION: 1. No evidence of torsion, epididymitis, and/or orchitis. 2. Small right hydrocele. 3. Diffuse scrotal cellulitis.
--- NOTE | 2024-08-09 10:44 | DVHPN2 ---
Subjective Continues to report having shortness of breath, bilateral lower extremity swelling Reviewed: H&P, Labs, Medications, Previous Orders Changes from previous H/P or p: No Changes Cardiovascular: Orthopnea, Edema Respiratory: Cough, Shortness of breath, SOB with excertion, Sputum Objective Vitals Vital Signs Date Time Temp Pulse Resp B/P (MAP) Pulse Ox O2 Delivery O2 Flow Rate FiO2 08/09/24 10:07 98.9 29 18 127/76 (93) 10 98.9 08/09/24 06:52 Nasal Cannula* 2 28 Intake/Output Intake and Output 08/09/24 07:00 Intake Total 1290 ml Output Total 1500 ml Balance -210 ml Intake Oral 1040 ml IV Total 250 ml Output Urine Total 1500 ml General Appearance: Alert, Oriented X3, Cooperative, No acute distress HEENT: PERRLA Lungs: Clear to auscultation Cardiovascular: Regular rate, Other (Atrial fibrillation with V paced rhythm) Abdomen: Normal bowel sounds Extremities: Other (bilateral leg edema ) Skin: Dry, Intact Psych/Mental Status: Mental status NL Medications Current Medications Medications Dose Ordered Sig/Toni Route Start Time Stop Time Status Last Admin Dose Admin Carvedilol 3.125 mg Q12HR PO 08/07/24 22:00 08/08/24 23:03 3.125 MG Lisinopril 5 mg DAILY PO 08/08/24 10:00 08/08/24 09:51 5 MG Aspirin 162 mg DAILY PO 08/08/24 10:00 08/08/24 09:50 162 MG Atorvastatin Calcium 10 mg HS PO 08/07/24 22:00 08/08/24 23:02 10 MG Azithromycin 250 ml @ 125 mls/hr DAILY IV 08/08/24 10:00 08/08/24 09:53 125 MLS/HR Ondansetron HCl 4 mg Q4HP PRN IV 08/07/24 19:30 Enoxaparin Sodium 40 mg DAILY SC 08/08/24 10:00 08/08/24 09:52 40 MG Acetaminophen 650 mg Q6HP PRN PO 08/07/24 19:30 Nitroglycerin 0.4 mg Q5MINP PRN SL 08/07/24 19:30 Morphine Sulfate 2 mg Q30M PRN IV 08/07/24 19:30 Guaifenesin/ Dextromethorphan 10 ml Q4HP PRN PO 08/08/24 00:15 Furosemide 40 mg BIDD IV 08/08/24 18:00 08/09/24 05:06 40 MG Diagnostic Test (Pha) 1 strip ACHS 08/08/24 17:00 08/09/24 06:00 1 STRIP Insulin Human Regular ACHS SC 08/08/24 17:00 08/09/24 06:05 2 UNITS Dextrose 50 ml UD PRN IV 08/08/24 12:30 Spironolactone 25 mg DAILY PO 08/09/24 10:00 Empaglifozin 10 mg DAILY PO 08/09/24 10:00 Albuterol 2.5 mg Q6HWA NEB 08/09/24 12:00 Ipratropium [place] 0.5 mg Q6HWA [facility] 08/09/24 12:00 Laboratory Results Laboratory Tests 08/07/24 15:45 08/08/24 05:22 Urinalysis Test 08/07/24 23:30 Urine Color Yellow (Yellow) Urine Clarity Clear (Clear) Urine pH 5.5 (5.0-9.0) Urine Specific [place] 1.015 (1.001-1.035) Urine Protein Negative (Negative) Urine Ketones Negative (Negative) Urine Blood Negative /uL (Negative) Urine Nitrite Negative (Negative) Urine Bilirubin Negative (Negative) Urine Urobilinogen Normal mg/dL (Negative) Urine Leukocyte Esterase Negative /uL (Negative) Urine RBC 1 /hpf (0 - 3) Urine WBC 1 /hpf (0 - 3) Urine Squamous Epithelial Cells None seen /hpf (<5) Urine Bacteria None seen /hpf (None Seen) Urine Glucose Normal mg/dL (Normal) Labs and/or images reviewed: Labs reviewed by me, Image(s) reviewed by me Assessment/Plan Assessment/Plan Impression: -acute decompensated systolic heart failure with ejection fraction 40% -atrial fibrillation -obesity -nicotine dependence -COPD with probable exacerbation -acute hypoxic respiratory failure -primary hypertension -dyslipidemia Plan: -continue IV diuresis in addition to goal-directed medical therapy. -pacemaker interrogation: Patient has one year left of pacemaker life. Recommend assessing patient for possible upgrade to ICD or replacement of pacemaker within the near future -recommend starting NOAC per Cardiology. Given possible need for new pacemaker considering close to end of life of device, recommend starting after decision was made for possible new pacemaker placement -start DuoNebs q.6 hours, Pulmicort -room air ABG -nicotine patch consideration if patient was requesting to smoke. -repeat labs and chest x-ray in a.m. Total time spent with patient discussing and formulating plan of care: 35 minutes. This medical document was created using an electronic medical record system with [employer] dictation system. Although this document has been carefully reviewed, there may still be some phonetic and typographical errors. These areas are purely typographical due to imperfections of the software programs, and do not reflect any compromise in the patient's medical care. Plan discussed with: Patient, Other (RN) My Orders Orders - MANNIE KAY NP Procedure Category Date Status Time Chest Xray 1 View XY 08/08/24 Resulted 11:01 Glucose Blood PHA 08/08/24 In Process (Accu-Chek Comfort 17:00 Insulin R (Human) PHA 08/08/24 In Process (Insulin R) 17:00 Dextrose 50% Syringe PHA 08/08/24 In Process 12:30 Construction Crew Member To Assess ORDERS 08/08/24 Transmitted Pacemaker 12:24 Spironolactone PHA 08/09/24 In Process (Aldactone) 10:00 Empagliflozin PHA 08/09/24 In Process (Jardiance) 10:00 Respiratory Culture KARLOS 08/08/24 Logged W/ Gs 12:24 Albuterol Medneb PHA 08/09/24 In Process (Ventolin Medneb) 12:00 Chest Portable XY 08/10/24 Logged 04:00 Ipratropium Medneb PHA 08/09/24 In Process (Atrovent Medneb) 12:00 Abg W/ Co-Ox RT 08/09/24 Logged 09:59 Date of Service: Aug 09, 2024 Billing Provider: MANNIE KAY NP Common Visit Codes: [id number] INP/OBS CARE(HIGH) MANNIE KAY NP Aug 09, 2024 10:44
[2024-08-09] MEDS: BUDESONIDE (INHALATION) 0.5 MG/2 ML NEB NEB ONE (10:50)
[2024-08-09] MEDS: SPIRONOLACTONE 25 MG TAB PO SCH (11:20)
[2024-08-09] MEDS: EMPAGLIFLOZIN 10 MG TAB PO SCH (11:26)
[2024-08-09] MEDS: ALBUTEROL SULF 2.5 MG/0.5ML(0.5%) NEB SOLN NEB SCH (12:35)
[2024-08-09] MEDS: IPRATROPIUM BROM 0.5 MG/2.5ML INH SOL NEB SCH (12:35)
--- NOTE | 2024-08-09 14:38 | DVHPN2 ---
Consult Progress Note Date Seen: Aug 09, 2024 Subjective Other Systems: patient and examined today. His general edema is getting better; Patient however, seems still seems some what confused. He mentioned that some called to tell hime that he was going home. Testicular US showed scrotal cellullitis and a small hydrocele. Pacemaker interogated yesterday ( 08/09/2024), Device has 1 more year of battert life. Objective vital signs Vital Sign Date Time Temp Pulse Resp B/P (MAP) Pulse Ox O2 Delivery O2 Flow Rate FiO2 08/09/24 13:00 98.1 71 16 146/91 (109) 100 98.1 08/09/24 10:00 Nasal Cannula* 4 36 Total Intake and Output 08/08/24 08/08/24 08/09/24 15:00 23:00 07:00 Intake Total 250 ml 840 ml 200 ml Output Total 1000 ml 500 ml Balance 250 ml -160 ml -300 ml medications Current Medications Medications Dose Ordered Sig/Toni Route Start Time Stop Time Status Last Admin Dose Admin Carvedilol 3.125 mg Q12HR PO 08/07/24 22:00 08/09/24 11:26 3.125 MG Lisinopril 5 mg DAILY PO 08/08/24 10:00 08/09/24 11:26 5 MG Aspirin 162 mg DAILY PO 08/08/24 10:00 08/09/24 11:20 162 MG Atorvastatin Calcium 10 mg HS PO 08/07/24 22:00 08/08/24 23:02 10 MG Azithromycin 250 ml @ 125 mls/hr DAILY IV 08/08/24 10:00 08/09/24 11:20 125 MLS/HR Ondansetron HCl 4 mg Q4HP PRN IV 08/07/24 19:30 Enoxaparin Sodium 40 mg DAILY SC 08/08/24 10:00 08/09/24 11:21 40 MG Acetaminophen 650 mg Q6HP PRN PO 08/07/24 19:30 Nitroglycerin 0.4 mg Q5MINP PRN SL 08/07/24 19:30 Morphine Sulfate 2 mg Q30M PRN IV 08/07/24 19:30 Guaifenesin/ Dextromethorphan 10 ml Q4HP PRN PO 08/08/24 00:15 Furosemide 40 mg BIDD IV 08/08/24 18:00 08/09/24 05:06 40 MG Diagnostic Test (Pha) 1 strip ACHS 08/08/24 17:00 08/09/24 12:02 1 STRIP Insulin Human Regular ACHS SC 08/08/24 17:00 08/09/24 06:05 2 UNITS Dextrose 50 ml UD PRN IV 08/08/24 12:30 Spironolactone 25 mg DAILY PO 08/09/24 10:00 08/09/24 11:20 25 MG Empaglifozin 10 mg DAILY PO 08/09/24 10:00 08/09/24 11:26 10 MG Albuterol 2.5 mg Q6HWA NEB 08/09/24 12:00 Ipratropium [place] 0.5 mg Q6HWA NEB 08/09/24 12:00 Budesonide 0.5 mg BID NEB 08/09/24 22:00 laboratory and microbiology Laboratory Tests 08/08/24 05:22 08/07/24 15:45 Test 08/08/24 05:22 Range/Units Serum Glucose 104 74-106 mg/dL Problem List/Assessment/Plan Problem List/Assessment/Plan Acute on chronic HFr EF 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 --> Lasix drip 10/hr --> Generalized edema--> Improving --> Strict I&O --> daily weight --> Initiate GDMT (Coreg, spironolactone, lisinopril, Jardiance) NSTEMI type II --> Troponin 114--> 109 --> management of the underlying pathology Presence of pacemaker ([id number]) --> Interrogated today --> 1 year battery life left Possible paroxysmal atrial fibrillation --> Continue eliquis Cardiomegaly --> Chest x-ray: Cardiomegaly with CHF Possible early pneumonia --> Continue antibiotics per primary treatment Acute hypoxic respiratory failure --> No history oxygen use at home --> on 3L of oxygen Obesity --> BMI: 37.4 --> This likely not his correct weight --> Recommend CPAP Scrotal cellulitis --> Consider antibiotics per primary team Small hydrocele --> Continue to diuresis Thank you for allowing us to participate in the care of this patient. Please call if you have any questions or concerns. Plan discussed with: Patient Date of Service: Aug 09, 2024 Billing Provider: CLYDE JERONIMO MD Cardiology Common Codes: [id number] CARE-EACH +30MIN ELDON CORTÉS RESIDENT Aug 09, 2024 14:38
[2024-08-09] MEDS: FUROSEMIDE INJECTION 100 MG in SODIUM CHL 0.9% 100 ML IV SCH (17:44)
[2024-08-09] MEDS: BUDESONIDE (INHALATION) 0.5 MG/2 ML NEB NEB SCH (19:30)
[2024-08-10] VITALS (14 sets, daily range): BP systolic 96–143; BP diastolic 48–88; PULSE 76–104; RESP 16–20; TEMP 97.5–98.9; O2SAT 95–100
--- NOTE | 2024-08-10 05:27 | DVH ---
CHEST RADIOGRAPH Indication: chf Technique: Single frontal view of the chest was obtained Comparison: XY CHEST XRAY 1 VIEW on DOS: 08/08/24, XY CHEST PORTABLE on DOS: 08/07/24, XY CHEST XRAY 1 VIEW on DOS: 08/08/24 FINDINGS: Lines and Tubes: None Lungs: No focal consolidation. Pleura: No effusion. No pneumothorax. Cardiomediastinal contours: Cardiomegaly Bones: No acute osseous abnormality. IMPRESSION: Cardiomegaly with CHF
[2024-08-10 11:00] LABS: Potassium 3.6 mmol/L (3.5-5.1); Sodium 138 mmol/L (136-145)
[2024-08-10 11:01] LABS: Anion Gap 6 (5-15); Calcium 9.5 mg/dL (8.7-10.4)
[2024-08-10 11:19] LABS: Blood Urea Nitrogen 29 mg/dL (9-23); Carbon Dioxide 35 mmol/L (20-31); Chloride 97 mmol/L (98-107); Glucose 134 mg/dL (74-106)
--- NOTE | 2024-08-10 11:52 | DVHPN2 ---
Consult Progress Note Date Seen: Aug 10, 2024 Subjective Review of Systems: CVS:Normal, RESPIRATORY:Abnormal, NEURO:Normal Other Systems: C/o SOB, improving Objective vital signs Vital Sign Date Time Temp Pulse Resp B/P (MAP) Pulse Ox O2 Delivery O2 Flow Rate FiO2 08/10/24 11:49 77 19 100 08/10/24 11:41 Nasal Cannula* 4 36 08/10/24 11:19 143/81 08/10/24 09:00 98.1 98.1 Total Intake and Output 08/09/24 08/09/24 08/10/24 15:00 23:00 07:00 Intake Total 730 ml 240 ml 400 ml Output Total 1100 ml 1000 ml Balance 730 ml -860 ml -600 ml medications Current Medications Medications Dose Ordered Sig/Toni Route Start Time Stop Time Status Last Admin Dose Admin Carvedilol 3.125 mg Q12HR PO 08/07/24 22:00 08/10/24 10:17 3.125 MG Lisinopril 5 mg DAILY PO 08/08/24 10:00 08/10/24 10:17 5 MG Aspirin 162 mg DAILY PO 08/08/24 10:00 08/10/24 10:17 162 MG Atorvastatin Calcium 10 mg HS PO 08/07/24 22:00 08/09/24 22:00 10 MG Azithromycin 250 ml @ 125 mls/hr DAILY IV 08/08/24 10:00 08/09/24 11:20 125 MLS/HR Ondansetron HCl 4 mg Q4HP PRN IV 08/07/24 19:30 Enoxaparin Sodium 40 mg DAILY SC 08/08/24 10:00 08/09/24 11:21 40 MG Acetaminophen 650 mg Q6HP PRN PO 08/07/24 19:30 Nitroglycerin 0.4 mg Q5MINP PRN SL 08/07/24 19:30 Morphine Sulfate 2 mg Q30M PRN IV 08/07/24 19:30 Guaifenesin/ Dextromethorphan 10 ml Q4HP PRN PO 08/08/24 00:15 Diagnostic Test (Pha) 1 strip ACHS 08/08/24 17:00 08/10/24 11:22 1 STRIP Insulin Human Regular ACHS SC 08/08/24 17:00 08/10/24 11:31 4 UNITS Dextrose 50 ml UD PRN IV 08/08/24 12:30 Spironolactone 25 mg DAILY PO 08/09/24 10:00 08/10/24 10:17 25 MG Empaglifozin 10 mg DAILY PO 08/09/24 10:00 08/10/24 10:17 10 MG Albuterol 2.5 mg Q6HWA NEB 08/09/24 12:00 08/10/24 11:41 2.5 MG Ipratropium [place] 0.5 mg Q6HWA NEB 08/09/24 12:00 08/10/24 11:41 0.5 MG Budesonide 0.5 mg BID NEB 08/09/24 22:00 08/10/24 06:52 0.5 MG Furosemide 100 mg/ Sodium Chloride 110 ml @ 11 mls/hr Q10H IV 08/09/24 14:45 08/10/24 11:19 11 MLS/HR Examination: LUNGS:Abnormal (Diminished), CVS:Abnormal (BLE edema ), NEURO:Normal (A&O x 3) laboratory and microbiology Laboratory Tests 08/10/24 10:35 08/07/24 15:45 Test 08/10/24 10:35 Range/Units Serum Glucose 134 H 74-106 mg/dL Problem List/Assessment/Plan Problem List/Assessment/Plan Acute on chronic HFr EF likely non-ischemic dilated cardiomyopathy --> Echo (08/08/2024) revealed ejection fraction of 40% --> BNP: 636, 604 --> Lasix drip 10/hr. Strict I&O. Daily weight. Fluid restriction --> Continue GDMT (Coreg, spironolactone, lisinopril, Jardiance) --> Generalized edema--> Improving NSTEMI type II secondary to above --> Troponin 114--> 109 --> Management of the underlying pathology Presence of pacemaker ([id number]) --> Interrogated on 08/08/2024. Implantation Date: 01/12/2015. --> Intermittent A-fib with RVR episodes recorded. 1 year remaining of battery life. Unspecified atrial fibrillation, likely persistent --> DOAC, eliquis therapy. [id number] Score 3. HAS-BLED 1. --> Rate control, coreg BID --> Antiarrhythmic, hold. Likely persistent in nature Cardiomegaly --> Chest x-ray: Cardiomegaly with CHF. As above. Possible early pneumonia --> Continue antibiotics per primary treatment Acute hypoxic respiratory failure --> No history oxygen use at home --> on 3L of oxygen & CPAP HS Obesity --> BMI: 37.4 --> This likely not his correct weight Scrotal cellulitis --> Consider antibiotics per primary team Small hydrocele --> Continue to diuresis Thank you for allowing us to participate in the care of this patient. Please call if you have any questions or concerns. This medical document was created using an electronic medical record system with voice recognition software and computerized dictation system. Although this document has been carefully reviewed, there might still be some phonetic and typographical errors. Occasional wrong-word or ``sound-alike substitutions may have occurred due to the inherent limitations of voice recognition software. These areas are purely typographical due to imperfections of the software programs and do not reflect any compromise in the patient's medical care. Please read the chart carefully and recognize, using context, where these substitutions have occurred. Plan discussed with: Patient, Other Date of Service: Aug 10, 2024 Billing Provider: CLYED JERONIMO MD Cardiology Common Codes: [id number] [facility] Sm[facility] Aug 10, 2024 11:52
[2024-08-10] MEDS: POTASSIUM CHL 20 Meq TABLET PO ONE (15:29)
[2024-08-10] MEDS: AZITHROMYCIN 250 MG TAB PO ONE (15:29)
--- NOTE | 2024-08-10 19:22 | DVHPN2 ---
Subjective switch to PO azithromycin, patient will need pulm outpatient for sleep study referral Reviewed: H&P, Labs, Medications, Previous Orders Changes from previous H/P or p: No Changes Cardiovascular: Orthopnea, Edema Respiratory: Cough, Shortness of breath, SOB with excertion, Sputum Objective Vitals Vital Signs Date Time Temp Pulse Resp B/P (MAP) Pulse Ox O2 Delivery O2 Flow Rate FiO2 08/10/24 18:47 95 Nasal Cannula 2.0 08/10/24 18:47 28 08/10/24 17:00 86 19 101/71 (81) 08/10/24 09:00 98.1 98.1 Intake/Output Intake and Output 08/10/24 04:00 Intake Total 1170 ml Output Total 1600 ml Balance -430 ml Intake Oral 920 ml IV Total 250 ml Output Urine Total 1600 ml General Appearance: Alert, Oriented X3, Cooperative, No acute distress HEENT: PERRLA Lungs: Clear to auscultation Cardiovascular: Regular rate, Other (Atrial fibrillation with V paced rhythm) Abdomen: Normal bowel sounds Extremities: Other (bilateral leg edema ) Skin: Dry, Intact Psych/Mental Status: Mental status NL Medications Current Medications Medications Dose Ordered Sig/Toni Route Start Time Stop Time Status Last Admin Dose Admin Carvedilol 3.125 mg Q12HR PO 08/07/24 22:00 08/10/24 10:17 3.125 MG Lisinopril 5 mg DAILY PO 08/08/24 10:00 08/10/24 10:17 5 MG Aspirin 162 mg DAILY PO 08/08/24 10:00 08/10/24 10:17 162 MG Atorvastatin Calcium 10 mg HS PO 08/07/24 22:00 08/09/24 22:00 10 MG Ondansetron HCl 4 mg Q4HP PRN IV 08/07/24 19:30 Enoxaparin Sodium 40 mg DAILY SC 08/08/24 10:00 08/09/24 11:21 40 MG Acetaminophen 650 mg Q6HP PRN PO 08/07/24 19:30 Nitroglycerin 0.4 mg Q5MINP PRN SL 08/07/24 19:30 Morphine Sulfate 2 mg Q30M PRN IV 08/07/24 19:30 Guaifenesin/ Dextromethorphan 10 ml Q4HP PRN PO 08/08/24 00:15 Diagnostic Test (Pha) 1 strip ACHS 08/08/24 17:00 08/10/24 17:24 1 STRIP Insulin Human Regular ACHS SC 08/08/24 17:00 08/10/24 11:31 4 UNITS Dextrose 50 ml UD PRN IV 08/08/24 12:30 Spironolactone 25 mg DAILY PO 08/09/24 10:00 08/10/24 10:17 25 MG Empaglifozin 10 mg DAILY PO 08/09/24 10:00 08/10/24 10:17 10 MG Albuterol 2.5 mg Q6HWA NEB 08/09/24 12:00 08/10/24 11:41 2.5 MG Ipratropium [place] 0.5 mg Q6HWA NEB 08/09/24 12:00 08/10/24 11:41 0.5 MG Budesonide 0.5 mg BID NEB 08/09/24 22:00 08/10/24 06:52 0.5 MG Furosemide 100 mg/ Sodium Chloride 110 ml @ 11 mls/hr Q10H IV 08/09/24 14:45 08/10/24 11:19 11 MLS/HR Azithromycin 500 mg DAILY PO 08/11/24 10:00 Laboratory Results Laboratory Tests 08/07/24 15:45 08/10/24 10:35 Chemistry Test 08/10/24 10:35 Calcium Level 9.5 mg/dL (8.7-10.4) Cardiac Markers Test 08/10/24 10:35 B-Type Natriuretic Peptide 604.26 pg/mL (0-100) Urinalysis Test 08/07/24 23:30 Urine Color Yellow (Yellow) Urine Clarity Clear (Clear) Urine pH 5.5 (5.0-9.0) Urine Specific [place] 1.015 (1.001-1.035) Urine Protein Negative (Negative) Urine Ketones Negative (Negative) Urine Blood Negative /uL (Negative) Urine Nitrite Negative (Negative) Urine Bilirubin Negative (Negative) Urine Urobilinogen Normal mg/dL (Negative) Urine Leukocyte Esterase Negative /uL (Negative) Urine RBC 1 /hpf (0 - 3) Urine WBC 1 /hpf (0 - 3) Urine Squamous Epithelial Cells None seen /hpf (<5) Urine Bacteria None seen /hpf (None Seen) Urine Glucose Normal mg/dL (Normal) Assessment/Plan Assessment/Plan Impression: -acute decompensated systolic heart failure with ejection fraction 40% -atrial fibrillation -obesity -nicotine dependence -COPD with probable exacerbation -acute hypoxic respiratory failure -primary hypertension -dyslipidemia pulmonary hypertension Plan: -continue IV diuresis in addition to goal-directed medical therapy. -pacemaker interrogation: Patient has one year left of pacemaker life. Recommend assessing patient for possible upgrade to ICD or replacement of pacemaker within the near future -recommend starting NOAC per Cardiology. Given possible need for new pacemaker considering close to end of life of device, recommend starting after decision was made for possible new pacemaker placement -start DuoNebs q.6 hours, Pulmicort -room air ABG -nicotine patch consideration if patient was requesting to smoke. -repeat labs and chest x-ray in a.m. Plan discussed with: Patient My Orders Orders - RUSLAN DE SOUZA MD Procedure Category Date Status Time Azithromycin Tablet PHA 08/11/24 In Process (Zithromax Tablet) 10:00 Date of Service: Aug 10, 2024 Billing Provider: RUSLAN DE SOUZA MD Common Visit Codes: [id number] INP/OBS CARE(HIGH) RUSLAN DE SOUZA MD Aug 10, 2024 19:22
[2024-08-11] VITALS (14 sets, daily range): BP systolic 104–118; BP diastolic 69–82; PULSE 69–93; RESP 18–24; TEMP 97.4–98.3; O2SAT 93–100
[2024-08-11] MEDS: AZITHROMYCIN 250 MG TAB PO SCH (09:40)
[2024-08-11 10:00] LABS: Basophils # (auto) 0 10 ^3/uL (0-0.2); Basophils % (auto) 0.7 % (0.0-2.0); Eosinophils # (auto) 0 10 ^3/uL (0-0.8); Eosinophils % (auto) 0.1 % (0.0-7.0); Hematocrit 36.1 % (41.0-53.0); Lymphocytes # (auto) 0.9 10 ^3/uL (0.4-5.4); Lymphocytes % (auto) 16.8 % (10.0-50.0); Mean Corpuscular Hemoglobin 32.3 pg (28.0-32.0); Mean Corpuscular Hgb Conc. 33.2 g/dL (32.0-36.0); Mean Corpuscular Volume 97.2 fL (80.0-100.0); Monocytes # (auto) 0.7 10 ^3/uL (0-1.3); Monocytes % (auto) 12.6 % (0.0-12.0); Neutrophils # (auto) 3.7 10 ^3/uL (1.6-8.6); Neutrophils % (auto) 69.8 % (37.0-80.0); Platelet Count (auto) 255 10^3/uL (140-450); Red Blood Cells 3.71 10^6/uL (4.5-5.90); Red Cell Distribution Width 14.4 % (11.8-14.3); White Blood Cell 5.3 10^3/uL (4.4-10.8)
[2024-08-11 10:04] LABS: Chloride 98 mmol/L (98-107); Potassium 4.3 mmol/L (3.5-5.1); Sodium 139 mmol/L (136-145)
[2024-08-11 10:05] LABS: Anion Gap 3 (5-15); Calcium 9.7 mg/dL (8.7-10.4)
[2024-08-11 10:10] LABS: BUN/Creatinine Ratio 29.9 (10.0-20.0)
[2024-08-11 10:12] LABS: Blood Urea Nitrogen 44 mg/dL (9-23); Carbon Dioxide 38 mmol/L (20-31); Glucose 141 mg/dL (74-106)
--- NOTE | 2024-08-11 11:31 | DVHPN2 ---
Consult Progress Note Date Seen: Aug 11, 2024 Subjective Other Systems: Patient seend and examined today. He is looking a lot better in appearance although he still has significant edema. Gradually improving. His Lasix drip was discontinued due to low blood pressure overnight. BP this morning reads 118/78. Patient is breathing much better he is currently on only 2 L of oxygen compared to 4 L previously. Patient is more alert and oriented and asking questions. Patient was given CPAP patient overnight however patient said it was making so much night so he occluded 1 opening causing him to retain more CO2. So the order for CPAP has been discontinued. Objective vital signs Vital Sign Date Time Temp Pulse Resp B/P (MAP) Pulse Ox O2 Delivery O2 Flow Rate FiO2 08/11/24 09:50 98 Nasal Cannula* 2 28 08/11/24 09:41 118/73 08/11/24 09:40 69 08/11/24 09:00 98.3 18 98.3 Total Intake and Output 08/10/24 08/10/24 08/11/24 15:00 23:00 07:00 Intake Total 110 ml 200 ml 640 ml Output Total 750 ml 300 ml Balance 110 ml -550 ml 340 ml medications Current Medications Medications Dose Ordered Sig/Toni Route Start Time Stop Time Status Last Admin Dose Admin Carvedilol 3.125 mg Q12HR PO 08/07/24 22:00 08/11/24 09:40 3.125 MG Lisinopril 5 mg DAILY PO 08/08/24 10:00 08/11/24 09:41 5 MG Aspirin 162 mg DAILY PO 08/08/24 10:00 08/11/24 09:39 162 MG Atorvastatin Calcium 10 mg HS PO 08/07/24 22:00 08/09/24 22:00 10 MG Ondansetron HCl 4 mg Q4HP PRN IV 08/07/24 19:30 Enoxaparin Sodium 40 mg DAILY SC 08/08/24 10:00 08/11/24 09:40 40 MG Acetaminophen 650 mg Q6HP PRN PO 08/07/24 19:30 Nitroglycerin 0.4 mg Q5MINP PRN SL 08/07/24 19:30 Morphine Sulfate 2 mg Q30M PRN IV 08/07/24 19:30 Guaifenesin/ Dextromethorphan 10 ml Q4HP PRN PO 08/08/24 00:15 Diagnostic Test (Pha) 1 strip ACHS 08/08/24 17:00 08/11/24 00:18 1 STRIP Insulin Human Regular ACHS SC 08/08/24 17:00 08/10/24 22:08 3 UNITS Dextrose 50 ml UD PRN IV 08/08/24 12:30 Spironolactone 25 mg DAILY PO 08/09/24 10:00 08/11/24 09:40 25 MG Empaglifozin 10 mg DAILY PO 08/09/24 10:00 08/11/24 09:40 10 MG Albuterol 2.5 mg Q6HWA NEB 08/09/24 12:00 08/11/24 07:37 2.5 MG Ipratropium [place] 0.5 mg Q6HWA NEB 08/09/24 12:00 08/11/24 07:37 0.5 MG Budesonide 0.5 mg BID NEB 08/09/24 22:00 08/11/24 07:37 0.5 MG Furosemide 100 mg/ Sodium Chloride 110 ml @ 11 mls/hr Q10H IV 08/09/24 14:45 08/10/24 11:19 11 MLS/HR Azithromycin 500 mg DAILY PO 08/11/24 10:00 08/11/24 09:40 500 MG Examination: LUNGS:Abnormal (still wheezing) laboratory and microbiology Laboratory Tests 08/11/24 09:38 Test 08/11/24 09:38 Range/Units Serum Glucose 141 H 74-106 mg/dL Problem List/Assessment/Plan Problem List/Assessment/Plan Acute on chronic HFr EF 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 --> Lasix drip 10/hr (resumed this am after it was discontinued due to low BP) --> Generalized edema--> Improving --> Strict I&O --> daily weight --> Continue GDMT (Coreg, spironolactone, lisinopril, Jardiance) NSTEMI type II --> Troponin 114--> 109 --> management of the underlying pathology Presence of pacemaker ([id number]) --> Interrogated today --> 1 year battery life left Possible paroxysmal atrial fibrillation --> Continue eliquis Cardiomegaly --> Chest x-ray: Cardiomegaly with CHF Possible early pneumonia --> Continue antibiotics per primary treatment Acute hypoxic respiratory failure --> No history oxygen use at home --> on 3L of oxygen Morbid Obesity --> BMI:40.6 --> This likely not his correct weight --> Discontinued CPAP (08/11/2024) patient didn't like the noise. He said he is breathing better. Scrotal cellulitis --> Consider antibiotics per primary team Small hydrocele --> Continue to diuresis Thank you for allowing us to participate in the care of this patient. Please call if you have any questions or concerns. Plan discussed with: Patient Date of Service: Aug 11, 2024 Billing Provider: CLYDE JERONIMO MD Cardiology Common Codes: [id number] CARE-EACH +30MIN ELDON CORTÉS RESIDENT Aug 11, 2024 11:31
[2024-08-11 13:23] LABS: Magnesium 2.1 mg/dL (1.6-2.6)
[2024-08-11 13:25] LABS: Phosphorus 4.2 mg/dL (2.4-5.1)
--- NOTE | 2024-08-11 15:12 | DVHPN2 ---
Subjective bilateral leg swelling and shortness of breath Reviewed: Care Plan, H&P, Labs, Medications, Previous Orders Changes from previous H/P or p: No Changes Cardiovascular: Orthopnea, Edema Respiratory: Cough, Shortness of breath, SOB with excertion, Sputum Objective Vitals Vital Signs Date Time Temp Pulse Resp B/P (MAP) Pulse Ox O2 Delivery O2 Flow Rate FiO2 08/11/24 13:28 84 22 99 08/11/24 13:22 Nasal Cannula 2.0 08/11/24 13:22 28 08/11/24 13:16 110/70 08/11/24 12:00 97.4 97.4 Intake/Output Intake and Output 08/11/24 07:00 Intake Total 950 ml Output Total 1050 ml Balance -100 ml Intake Oral 840 ml IV Total 110 ml Output Urine Total 1050 ml # Bowel Movements 1 Exam shortness of Breath with productive cough. bilateral leg edema x 4 months General Appearance: Alert, Oriented X3, Cooperative, No acute distress HEENT: PERRLA Lungs: Clear to auscultation Cardiovascular: Regular rate, Other (Atrial fibrillation with V paced rhythm) Abdomen: Normal bowel sounds Extremities: Other (bilateral leg edema ) Skin: Dry, Intact Psych/Mental Status: Mental status NL Medications Current Medications Medications Dose Ordered Sig/Toni Route Start Time Stop Time Status Last Admin Dose Admin Carvedilol 3.125 mg Q12HR PO 08/07/24 22:00 08/11/24 09:40 3.125 MG Lisinopril 5 mg DAILY PO 08/08/24 10:00 08/11/24 09:41 5 MG Aspirin 162 mg DAILY PO 08/08/24 10:00 08/11/24 09:39 162 MG Atorvastatin Calcium 10 mg HS PO 08/07/24 22:00 08/09/24 22:00 10 MG Ondansetron HCl 4 mg Q4HP PRN IV 08/07/24 19:30 Enoxaparin Sodium 40 mg DAILY SC 08/08/24 10:00 08/11/24 09:40 40 MG Acetaminophen 650 mg Q6HP PRN PO 08/07/24 19:30 Nitroglycerin 0.4 mg Q5MINP PRN SL 08/07/24 19:30 Morphine Sulfate 2 mg Q30M PRN IV 08/07/24 19:30 Guaifenesin/ Dextromethorphan 10 ml Q4HP PRN PO 08/08/24 00:15 Diagnostic Test (Pha) 1 strip ACHS 08/08/24 17:00 08/11/24 12:09 1 STRIP Insulin Human Regular ACHS SC 08/08/24 17:00 08/10/24 22:08 3 UNITS Dextrose 50 ml UD PRN IV 08/08/24 12:30 Spironolactone 25 mg DAILY PO 08/09/24 10:00 08/11/24 09:40 25 MG Empaglifozin 10 mg DAILY PO 08/09/24 10:00 08/11/24 09:40 10 MG Albuterol 2.5 mg Q6HWA NEB 08/09/24 12:00 08/11/24 13:22 2.5 MG Ipratropium [place] 0.5 mg Q6HWA NEB 08/09/24 12:00 08/11/24 13:22 0.5 MG Budesonide 0.5 mg BID NEB 08/09/24 22:00 08/11/24 07:37 0.5 MG Furosemide 100 mg/ Sodium Chloride 110 ml @ 11 mls/hr Q10H IV 08/09/24 14:45 08/11/24 13:16 11 MLS/HR Azithromycin 500 mg DAILY PO 08/11/24 10:00 08/11/24 09:40 500 MG Laboratory Results Laboratory Tests 08/11/24 09:38 Chemistry Test 08/11/24 09:38 Calcium Level 9.7 mg/dL (8.7-10.4) Magnesium Level 2.1 mg/dL (1.6-2.6) Phosphorus Level 4.2 mg/dL (2.4-5.1) Urinalysis Test 08/07/24 23:30 Urine Color Yellow (Yellow) Urine Clarity Clear (Clear) Urine pH 5.5 (5.0-9.0) Urine Specific [place] 1.015 (1.001-1.035) Urine Protein Negative (Negative) Urine Ketones Negative (Negative) Urine Blood Negative /uL (Negative) Urine Nitrite Negative (Negative) Urine Bilirubin Negative (Negative) Urine Urobilinogen Normal mg/dL (Negative) Urine Leukocyte Esterase Negative /uL (Negative) Urine RBC 1 /hpf (0 - 3) Urine WBC 1 /hpf (0 - 3) Urine Squamous Epithelial Cells None seen /hpf (<5) Urine Bacteria None seen /hpf (None Seen) Urine Glucose Normal mg/dL (Normal) Labs and/or images reviewed: Labs reviewed by me, Image(s) reviewed by me Assessment/Plan Assessment/Plan 73 year -old male with a past medical history of DM , HTN ,TIA , CHF, PPM was inserted in 2009 , COPD former 30 year smokers was admitted for bilateral leg swelling x 3 days . pt states also having shortness of breath with dyspnea on exertion , also states having cough that is productive phlegm. pt has +4 pitting edema to legs and feet. per the patient recently relocated from [place], [place] when his 4 weeks ago hasn't established care and has no PCP in the area. patient is a poor historian with medications. pt hasn't had a cardiology follow up. Pt denies any chest pain , dizziness, palpitations, syncope,nausea / vomiting, fever. patient rounding: per nursing staff patient refusing and resistant of care labs/abg and medications. Lasix drip was turned off a period of the day, has resumed this afternoon. rounded on the patient this morning patient seems more alert and orientated he mentioned his symptoms have improved. still has shortness and breath and some wheezes. bilateral lower extremity edema has improved but still needs diuresis. assessment -PMH : DM ,HTN,TIA,CHF,PPM,COPD former smoker and ETOH --acute decompensated systolic heart failure with ejection fraction 40% -lower extremity peripheral edema -atrial fibrillation -obesity -nicotine dependence -COPD with probable exacerbation -acute hypoxic respiratory failure -primary hypertension -dyslipidemia -pulmonary hypertension Diagnostic test - CXR- pulmonary vascular congestion , cardiomegaly -US ext- negative DVT PLAN: -repeat CBC,CMP, xray in am - continue IV lasix diuresis -check respiratory status check sats on room air. patient sating 84% on RA . pt put back on 2lpm n/c. unable to obtain ABG two sticks and patient refused after - pacemaker device interrogation result - end of life 1 year - consult cardiology for possible device generator change during length of stay or perform outpatient - will hold NOAC eliquis and resume Lovenox until further discussed. pt wasn't sure what he wanted the new generator device but is willing possible have it done, due to not having established care in the area and doesn't have a local demurrage man -start DuoNebs q.6 hours, Pulmicort -nicotine patch consideration if patient was requesting to smoke. Plan discussed with: Patient, Other (NURSE) Date of Service: Aug 11, 2024 Billing Provider: MANNIE KAY NP Common Visit Codes: [id number] INP/OBS CARE(MOD) JUAN PABLO JUAREZ STUDENT [employer]ESS A[employer]LYST Aug 11, 2024 15:12
[2024-08-12] VITALS (14 sets, daily range): BP systolic 101–122; BP diastolic 59–85; PULSE 69–110; RESP 16–20; TEMP 97.8–98.2; O2SAT 91–100
[2024-08-12] MEDS: MULTIPLE VITAMIN TAB PO SCH (10:20)
--- NOTE | 2024-08-12 13:18 | DVHPN2 ---
Subjective bilateral leg swelling and shortness of breath Reviewed: Care Plan, H&P, Labs, Medications, Previous Orders Changes from previous H/P or p: No Changes Cardiovascular: Orthopnea, Edema Respiratory: Cough, Shortness of breath, SOB with excertion, Sputum Objective Vitals Vital Signs Date Time Temp Pulse Resp B/P (MAP) Pulse Ox O2 Delivery O2 Flow Rate FiO2 08/12/24 11:55 72 20 100 08/12/24 11:49 Nasal Cannula 3.0 08/12/24 11:49 32 08/12/24 10:21 122/83 08/12/24 09:00 97.8 97.8 Intake/Output Intake and Output 08/12/24 07:00 Intake Total 1900 ml Output Total 2250 ml Balance -350 ml Intake Oral 1900 ml Output Urine Total 2250 ml Exam shortness of Breath with productive cough. bilateral leg edema x 4 months General Appearance: Alert, Oriented X3, Cooperative, No acute distress HEENT: PERRLA Lungs: Other (rhonchi ) Cardiovascular: Regular rate, Other (Atrial fibrillation with V paced rhythm) Abdomen: Normal bowel sounds Extremities: Other (bilateral lower extremity edema ) Neuro: Normal gait, Normal speech Skin: Dry, Intact Psych/Mental Status: Mental status NL Medications Current Medications Medications Dose Ordered Sig/Toni Route Start Time Stop Time Status Last Admin Dose Admin Carvedilol 3.125 mg Q12HR PO 08/07/24 22:00 08/12/24 10:20 3.125 MG Lisinopril 5 mg DAILY PO 08/08/24 10:00 08/12/24 10:21 5 MG Aspirin 162 mg DAILY PO 08/08/24 10:00 08/12/24 10:19 162 MG Atorvastatin Calcium 10 mg HS PO 08/07/24 22:00 08/09/24 22:00 10 MG Ondansetron HCl 4 mg Q4HP PRN IV 08/07/24 19:30 Enoxaparin Sodium 40 mg DAILY SC 08/08/24 10:00 08/12/24 10:21 40 MG Acetaminophen 650 mg Q6HP PRN PO 08/07/24 19:30 Nitroglycerin 0.4 mg Q5MINP PRN SL 08/07/24 19:30 Morphine Sulfate 2 mg Q30M PRN IV 08/07/24 19:30 Guaifenesin/ Dextromethorphan 10 ml Q4HP PRN PO 08/08/24 00:15 Diagnostic Test (Pha) 1 strip ACHS 08/08/24 17:00 08/12/24 11:06 1 STRIP Insulin Human Regular ACHS SC 08/08/24 17:00 08/12/24 11:07 2 UNITS Dextrose 50 ml UD PRN IV 08/08/24 12:30 Spironolactone 25 mg DAILY PO 08/09/24 10:00 08/12/24 10:21 25 MG Empaglifozin 10 mg DAILY PO 08/09/24 10:00 08/12/24 10:20 10 MG Albuterol 2.5 mg Q6HWA NEB 08/09/24 12:00 08/12/24 11:49 2.5 MG Ipratropium [place] 0.5 mg Q6HWA NEB 08/09/24 12:00 08/12/24 11:49 0.5 MG Budesonide 0.5 mg BID NEB 08/09/24 22:00 08/11/24 19:31 0.5 MG Furosemide 100 mg/ Sodium Chloride 110 ml @ 11 mls/hr Q10H IV 08/09/24 14:45 08/12/24 06:18 11 MLS/HR Azithromycin 500 mg DAILY PO 08/11/24 10:00 08/12/24 10:21 500 MG Multivitamins 1 tab DAILY PO 08/12/24 10:00 08/12/24 10:20 1 TAB Laboratory Results Laboratory Tests 08/11/24 09:38 Urinalysis Test 08/07/24 23:30 Urine Color Yellow (Yellow) Urine Clarity Clear (Clear) Urine pH 5.5 (5.0-9.0) Urine Specific [place] 1.015 (1.001-1.035) Urine Protein Negative (Negative) Urine Ketones Negative (Negative) Urine Blood Negative /uL (Negative) Urine Nitrite Negative (Negative) Urine Bilirubin Negative (Negative) Urine Urobilinogen Normal mg/dL (Negative) Urine Leukocyte Esterase Negative /uL (Negative) Urine RBC 1 /hpf (0 - 3) Urine WBC 1 /hpf (0 - 3) Urine Squamous Epithelial Cells None seen /hpf (<5) Urine Bacteria None seen /hpf (None Seen) Urine Glucose Normal mg/dL (Normal) Labs and/or images reviewed: Labs reviewed by me, Image(s) reviewed by me Assessment/Plan Assessment/Plan 73 year -old male with a past medical history of DM , HTN ,TIA , CHF, PPM was inserted in 2009 , COPD former 30 year smokers was admitted for bilateral leg swelling x 3 days . pt states also having shortness of breath with dyspnea on exertion , also states having cough that is productive phlegm. pt has +4 pitting edema to legs and feet. per the patient recently relocated from [place], [place] when his 4 weeks ago hasn't established care and has no PCP in the area. patient is a poor historian with medications. pt hasn't had a cardiology follow up. Pt denies any chest pain , dizziness, palpitations, syncope,nausea / vomiting, fever. 08/12/24 patient rounding: seen patient today clinically improved since yesterday seems more alert and happier and isn't as resistant to care as previous days . patient states breathing has improved since with the continues diuresis and breathing treatments. patients bilateral lower extremity edema has improved , patient is still currently on Lasix drip. assessment -PMH : DM ,HTN,TIA,CHF,PPM,COPD former smoker and ETOH --acute decompensated systolic heart failure with ejection fraction 40% -lower extremity peripheral edema -atrial fibrillation -obesity -nicotine dependence -COPD with probable exacerbation -acute hypoxic respiratory failure -primary hypertension -dyslipidemia -pulmonary hypertension Diagnostic test - CXR- pulmonary vascular congestion , cardiomegaly -US ext- negative DVT PLAN: -repeat CBC,CMP DAILY -pending CXR - continue IV Lasix diuresis for one more day - improved urine output 3500mls 08/12/24 -wean patient 02 if possible - rechecked patient oxygen saturation on room air , lying down on RA sats at 84% , on exertion with physical therapy doing exercises in the bed oxygen saturation dropped to 75% - continue to work with physical therapy , patient was able to stand and walk unassisted from bed to chair - pacemaker device interrogation result - end of life 1 year - consult cardiology for possible device generator change during length of stay or perform outpatient - will hold NOAC eliquis and resume Lovenox until further discussed. pt wasn't sure what he wanted the new generator device but is willing possible have it done, due to not having established care in the area and doesn't have a local coconut boiler -start DuoNebs q.6 hours, Pulmicort -nicotine patch consideration if patient was requesting to smoke. Plan discussed with: Patient, Other (NURSE) Date of Service: Aug 12, 2024 Billing Provider: MANNIE KAY ROTARY ADJUSTER Common Visit Codes: [id number] INP/OBS CARE(MOD) JUAN PABLO JUAREZ STUDENT ROTARY ADJUSTER Aug 12, 2024 13:18
[2024-08-12 14:12] LABS: Potassium 3.9 mmol/L (3.5-5.1); Sodium 140 mmol/L (136-145)
[2024-08-12 14:13] LABS: Anion Gap 5 (5-15)
[2024-08-12 14:14] LABS: Calcium 9.6 mg/dL (8.7-10.4)
[2024-08-12 14:17] LABS: Carbon Dioxide 37 mmol/L (20-31); Chloride 98 mmol/L (98-107)
[2024-08-12 14:19] LABS: BUN/Creatinine Ratio 31.6 (10.0-20.0); Blood Urea Nitrogen 36 mg/dL (9-23); Glucose 141 mg/dL (74-106)
--- NOTE | 2024-08-12 14:51 | DVH ---
EXAM: XY CHEST XRAY 1 VIEW Indication: chf Technique: Single frontal view of the chest was obtained Comparison: XY CHEST PORTABLE on DOS: 08/10/24, XY CHEST XRAY 1 VIEW on DOS: 08/08/24, XY CHEST CHRIS BLE on DOS: 08/07/24 FINDINGS: Lines and Tubes: Cardiac pacemaker projects over left chest wall. Lungs: No focal consolidation. Pulmonary vascular congestion. Pleura: No effusion. No pneumothorax. Cardiomediastinal contours: Cardiomegaly. Bones: No acute osseous abnormality. IMPRESSION: Cardiomegaly with pulmonary vascular congestion.
--- NOTE | 2024-08-12 15:39 | DVHPN2 ---
Consult Progress Note Date Seen: Aug 12, 2024 Subjective Other Systems: Patient is seen and examined today. Doing much better. Family by the bedside. He is currently on 3 L of oxygen and he is communicating very well without showing evidence of shortness of breath. I spoke with patient about the need for CPAP at night. He did mentioned the he was agitated the 1st time they brought the CPAP. SO, he did not want to use it. But now he has understanding about it CPAP and would like to try. Otherwise, there was no other complaint. has improving very well the edema is getting better evidence of fluid drainage gets have to continue and monitor his electrolytes carefully. Objective vital signs Vital Sign Date Time Temp Pulse Resp B/P (MAP) Pulse Ox O2 Delivery O2 Flow Rate FiO2 08/12/24 11:55 72 20 100 08/12/24 11:49 Nasal Cannula 3.0 08/12/24 11:49 32 08/12/24 10:21 122/83 08/12/24 09:00 97.8 97.8 Total Intake and Output 08/11/24 08/11/24 08/12/24 15:00 23:00 07:00 Intake Total 700 ml 1200 ml Output Total 550 ml 1700 ml Balance 150 ml -500 ml medications Current Medications Medications Dose Ordered Sig/Toni Route Start Time Stop Time Status Last Admin Dose Admin Carvedilol 3.125 mg Q12HR PO 08/07/24 22:00 08/12/24 10:20 3.125 MG Lisinopril 5 mg DAILY PO 08/08/24 10:00 08/12/24 10:21 5 MG Aspirin 162 mg DAILY PO 08/08/24 10:00 08/12/24 10:19 162 MG Atorvastatin Calcium 10 mg HS PO 08/07/24 22:00 08/09/24 22:00 10 MG Ondansetron HCl 4 mg Q4HP PRN IV 08/07/24 19:30 Enoxaparin Sodium 40 mg DAILY SC 08/08/24 10:00 08/12/24 10:21 40 MG Acetaminophen 650 mg Q6HP PRN PO 08/07/24 19:30 Nitroglycerin 0.4 mg Q5MINP PRN SL 08/07/24 19:30 Morphine Sulfate 2 mg Q30M PRN IV 08/07/24 19:30 Guaifenesin/ Dextromethorphan 10 ml Q4HP PRN PO 08/08/24 00:15 Diagnostic Test (Pha) 1 strip ACHS 08/08/24 17:00 08/12/24 11:06 1 STRIP Insulin Human Regular ACHS SC 08/08/24 17:00 08/12/24 11:07 2 UNITS Dextrose 50 ml UD PRN IV 08/08/24 12:30 Spironolactone 25 mg DAILY PO 08/09/24 10:00 08/12/24 10:21 25 MG Empaglifozin 10 mg DAILY PO 08/09/24 10:00 08/12/24 10:20 10 MG Albuterol 2.5 mg Q6HWA NEB 08/09/24 12:00 08/12/24 11:49 2.5 MG Ipratropium [place] 0.5 mg Q6HWA NEB 08/09/24 12:00 08/12/24 11:49 0.5 MG Budesonide 0.5 mg BID NEB 08/09/24 22:00 08/11/24 19:31 0.5 MG Furosemide 100 mg/ Sodium Chloride 110 ml @ 11 mls/hr Q10H IV 08/09/24 14:45 08/12/24 06:18 11 MLS/HR Azithromycin 500 mg DAILY PO 08/11/24 10:00 08/12/24 10:21 500 MG Multivitamins 1 tab DAILY PO 08/12/24 10:00 08/12/24 10:20 1 TAB laboratory and microbiology Laboratory Tests 08/12/24 13:41 08/11/24 09:38 Test 08/12/24 13:41 Range/Units Serum Glucose 141 H 74-106 mg/dL Problem List/Assessment/Plan Problem List/Assessment/Plan Acute on chronic HFr EF 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 --> Lasix drip 10/hr (resumed this am after it was discontinued due to low BP),Monitor electrolytes closely --> Generalized edema--> Improving --> Strict I&O --> daily weight --> Continue GDMT (Coreg, spironolactone, lisinopril, Jardiance) NSTEMI type II --> Troponin 114--> 109 --> management of the underlying pathology Presence of pacemaker ([id number]) --> Interrogated 08/09/2024 --> 1 year battery life left Possible paroxysmal atrial fibrillation --> Continue eliquis Cardiomegaly --> Chest x-ray: Cardiomegaly with CHF Possible early pneumonia --> Continue antibiotics per primary treatment Acute hypoxic respiratory failure --> No history oxygen use at home --> on 3L of oxygen 97% Morbid Obesity --> BMI:40.6 --> This likely not his correct weight --> Discontinued CPAP (08/11/2024) patient didn't like the noise. He said he is breathing better. --> CPAP ordered. Patient want to try it 08/12/2024 Scrotal cellulitis --> Consider antibiotics per primary team Small hydrocele --> Continue to diuresis Thank you for allowing us to participate in the care of this patient. Please call if you have any questions or concerns. Plan discussed with: Patient, Other (brother) Date of Service: Aug 12, 2024 Billing Provider: CLYDE JERONIMO MD Cardiology Common Codes: [id number] CARE-EACH +30MIN ELDON CORTÉS RESIDENT Aug 12, 2024 15:39
[2024-08-13] VITALS (14 sets, daily range): BP systolic 103–132; BP diastolic 55–77; PULSE 65–93; RESP 16–20; TEMP 97.5–98; O2SAT 90–100
--- NOTE | 2024-08-13 14:17 | DVHPN2 ---
Subjective Continues to report having shortness of breath, bilateral lower extremity swelling Reviewed: Care Plan, H&P, Labs, Medications, Previous Orders Changes from previous H/P or p: No Changes Cardiovascular: Orthopnea, Edema Respiratory: Cough, Shortness of breath, SOB with excertion, Sputum Objective Vitals Vital Signs Date Time Temp Pulse Resp B/P (MAP) Pulse Ox O2 Delivery O2 Flow Rate FiO2 08/13/24 11:36 74 16 100 08/13/24 11:30 Nasal Cannula* 2 28 08/13/24 10:36 120/61 08/13/24 08:34 97.5 97.5 Intake/Output Intake and Output 08/13/24 07:00 Intake Total 900 ml Output Total 3425 ml Balance -2525 ml Intake Oral 900 ml Output Urine Total 3425 ml General Appearance: Alert, Oriented X3, Cooperative, No acute distress HEENT: PERRLA Lungs: Other (rhonchi ) Cardiovascular: Regular rate, Other (Atrial fibrillation with V paced rhythm) Abdomen: Normal bowel sounds Extremities: Other (bilateral lower extremity edema ) Neuro: Normal gait, Normal speech Skin: Dry, Intact Psych/Mental Status: Mental status NL Medications Current Medications Medications Dose Ordered Sig/Toni Route Start Time Stop Time Status Last Admin Dose Admin Carvedilol 3.125 mg Q12HR PO 08/07/24 22:00 08/13/24 09:36 3.125 MG Lisinopril 5 mg DAILY PO 08/08/24 10:00 08/13/24 09:36 5 MG Aspirin 162 mg DAILY PO 08/08/24 10:00 08/13/24 09:34 162 MG Atorvastatin Calcium 10 mg HS PO 08/07/24 22:00 08/12/24 21:31 10 MG Ondansetron HCl 4 mg Q4HP PRN IV 08/07/24 19:30 Acetaminophen 650 mg Q6HP PRN PO 08/07/24 19:30 Nitroglycerin 0.4 mg Q5MINP PRN SL 08/07/24 19:30 Morphine Sulfate 2 mg Q30M PRN IV 08/07/24 19:30 Guaifenesin/ Dextromethorphan 10 ml Q4HP PRN PO 08/08/24 00:15 Diagnostic Test (Pha) 1 strip ACHS 08/08/24 17:00 08/13/24 11:57 1 STRIP Insulin Human Regular ACHS SC 08/08/24 17:00 08/13/24 11:59 2 UNITS Dextrose 50 ml UD PRN IV 08/08/24 12:30 Spironolactone 25 mg DAILY PO 08/09/24 10:00 08/13/24 09:35 25 MG Empaglifozin 10 mg DAILY PO 08/09/24 10:00 08/13/24 09:35 10 MG Albuterol 2.5 mg Q6HWA NEB 08/09/24 12:00 08/13/24 11:29 2.5 MG Ipratropium [place] 0.5 mg Q6HWA NEB 08/09/24 12:00 08/13/24 11:30 0.5 MG Budesonide 0.5 mg BID NEB 08/09/24 22:00 08/13/24 06:42 0.5 MG Furosemide 100 mg/ Sodium Chloride 110 ml @ 11 mls/hr Q10H IV 08/09/24 14:45 08/13/24 08:29 11 MLS/HR Azithromycin 500 mg DAILY PO 08/11/24 10:00 08/13/24 09:35 500 MG Multivitamins 1 tab DAILY PO 08/12/24 10:00 08/13/24 09:35 1 TAB Laboratory Results Laboratory Tests 08/11/24 09:38 08/12/24 13:41 Urinalysis Test 08/07/24 23:30 Urine Color Yellow (Yellow) Urine Clarity Clear (Clear) Urine pH 5.5 (5.0-9.0) Urine Specific [place] 1.015 (1.001-1.035) Urine Protein Negative (Negative) Urine Ketones Negative (Negative) Urine Blood Negative /uL (Negative) Urine Nitrite Negative (Negative) Urine Bilirubin Negative (Negative) Urine Urobilinogen Normal mg/dL (Negative) Urine Leukocyte Esterase Negative /uL (Negative) Urine RBC 1 /hpf (0 - 3) Urine WBC 1 /hpf (0 - 3) Urine Squamous Epithelial Cells None seen /hpf (<5) Urine Bacteria None seen /hpf (None Seen) Urine Glucose Normal mg/dL (Normal) Labs and/or images reviewed: Labs reviewed by me, Image(s) reviewed by me Assessment/Plan Assessment/Plan Impression: -acute decompensated systolic heart failure with ejection fraction 40% -atrial fibrillation -obesity -nicotine dependence -COPD with probable exacerbation -acute hypoxic respiratory failure -primary hypertension -dyslipidemia Plan: Events: Patient noted by respiratory therapy that room air oxygen is 92%. No need for ABG to obtain home O2. Patient has improved diuresis, with persistent swelling to lower extremities. -pacemaker interrogation: Patient has one year left of pacemaker life. Recommend assessing patient for possible upgrade to ICD or replacement of pacemaker within the near future -continue NOAC -continue DuoNebs and Pulmicort -reassess for discharge in a.m. if patient's volume overload has improved clinically. Total time spent with patient discussing and formulating plan of care: 35 minutes. This medical document was created using an electronic medical record system with [employer] dictation system. Although this document has been carefully reviewed, there may still be some phonetic and typographical errors. These areas are purely typographical due to imperfections of the software programs, and do not reflect any compromise in the patient's medical care. Plan discussed with: Patient, Other (RN) My Orders Orders - MANNIE KAY NP Procedure Category Date Status Time * Physicist [employer] CONS 08/12/24 Transmitted Consult Ss Eval For Home CONS 08/12/24 Transmitted Oxygen Abg W/ Co-Ox RT 08/12/24 Logged 18:26 Date of Service: Aug 13, 2024 Billing Provider: MANNIE KAY NP Common Visit Codes: [id number] INP/OBS CARE(HIGH) MANNIE KAY NP Aug 13, 2024 14:17
[2024-08-14] VITALS (13 sets, daily range): BP systolic 114–153; BP diastolic 75–90; PULSE 68–108; RESP 14–19; TEMP 97.7–98.4; O2SAT 95–100
[2024-08-14 15:09] LABS: Base Excess 10.5 mmol/L (-2.0-3.0)
--- NOTE | 2024-08-14 15:23 | DVHPN2 ---
Subjective Continues to report having shortness of breath, bilateral lower extremity swelling Reviewed: Care Plan, H&P, Labs, Medications, Previous Orders Changes from previous H/P or p: No Changes Cardiovascular: Orthopnea, Edema Respiratory: Cough, Shortness of breath, SOB with excertion, Sputum Objective Vitals Vital Signs Date Time Temp Pulse Resp B/P (MAP) Pulse Ox O2 Delivery O2 Flow Rate FiO2 08/14/24 12:49 98.1 68 14 134/88 (103) 95 98.1 08/14/24 10:00 Nasal Cannula 2.0 08/14/24 10:00 28 Intake/Output Intake and Output 08/14/24 07:00 Intake Total 920 ml Output Total 2150 ml Balance -1230 ml Intake Oral 920 ml Output Urine Total 2150 ml General Appearance: Alert, Oriented X3, Cooperative, No acute distress HEENT: PERRLA Lungs: Other (rhonchi ) Cardiovascular: Regular rate, Other (Atrial fibrillation with V paced rhythm) Abdomen: Normal bowel sounds Extremities: Other (bilateral lower extremity edema ) Neuro: Normal gait, Normal speech Skin: Dry, Intact Psych/Mental Status: Mental status NL, Mood NL Medications Current Medications Medications Dose Ordered Sig/Toni Route Start Time Stop Time Status Last Admin Dose Admin Carvedilol 3.125 mg Q12HR PO 08/07/24 22:00 08/14/24 10:27 3.125 MG Lisinopril 5 mg DAILY PO 08/08/24 10:00 08/14/24 10:26 5 MG Aspirin 162 mg DAILY PO 08/08/24 10:00 08/14/24 10:27 162 MG Atorvastatin Calcium 10 mg HS PO 08/07/24 22:00 08/13/24 23:01 10 MG Ondansetron HCl 4 mg Q4HP PRN IV 08/07/24 19:30 Acetaminophen 650 mg Q6HP PRN PO 08/07/24 19:30 Nitroglycerin 0.4 mg Q5MINP PRN SL 08/07/24 19:30 Morphine Sulfate 2 mg Q30M PRN IV 08/07/24 19:30 Guaifenesin/ Dextromethorphan 10 ml Q4HP PRN PO 08/08/24 00:15 Diagnostic Test (Pha) 1 strip ACHS 08/08/24 17:00 08/14/24 10:26 1 STRIP Insulin Human Regular ACHS SC 08/08/24 17:00 08/13/24 11:59 2 UNITS Dextrose 50 ml UD PRN IV 08/08/24 12:30 Spironolactone 25 mg DAILY PO 08/09/24 10:00 08/14/24 10:27 25 MG Empaglifozin 10 mg DAILY PO 08/09/24 10:00 08/14/24 10:25 10 MG Albuterol 2.5 mg Q6HWA NEB 08/09/24 12:00 08/14/24 06:45 2.5 MG Ipratropium [place] 0.5 mg Q6HWA NEB 08/09/24 12:00 08/14/24 06:45 0.5 MG Budesonide 0.5 mg BID NEB 08/09/24 22:00 08/14/24 06:45 0.5 MG Furosemide 100 mg/ Sodium Chloride 110 ml @ 11 mls/hr Q10H IV 08/09/24 14:45 08/14/24 04:39 11 MLS/HR Azithromycin 500 mg DAILY PO 08/11/24 10:00 08/14/24 10:25 500 MG Multivitamins 1 tab DAILY PO 08/12/24 10:00 08/14/24 10:25 1 TAB Laboratory Results Laboratory Tests 08/11/24 09:38 08/12/24 13:41 Urinalysis Test 08/07/24 23:30 Urine Color Yellow (Yellow) Urine Clarity Clear (Clear) Urine pH 5.5 (5.0-9.0) Urine Specific [place] 1.015 (1.001-1.035) Urine Protein Negative (Negative) Urine Ketones Negative (Negative) Urine Blood Negative /uL (Negative) Urine Nitrite Negative (Negative) Urine Bilirubin Negative (Negative) Urine Urobilinogen Normal mg/dL (Negative) Urine Leukocyte Esterase Negative /uL (Negative) Urine RBC 1 /hpf (0 - 3) Urine WBC 1 /hpf (0 - 3) Urine Squamous Epithelial Cells None seen /hpf (<5) Urine Bacteria None seen /hpf (None Seen) Urine Glucose Normal mg/dL (Normal) Blood Gas Results Test 08/14/24 14:55 Arterial Blood pH 7.460 (7.350-7.450) FiO2 % 21.0 Labs and/or images reviewed: Labs reviewed by me, Image(s) reviewed by me Assessment/Plan Assessment/Plan Impression: -acute decompensated systolic heart failure with ejection fraction 40% -atrial fibrillation -obesity -nicotine dependence -COPD with probable exacerbation -acute hypoxic respiratory failure -primary hypertension -dyslipidemia Plan: Events: Patient had severe dyspnea with ambulation, noted worsening hypoxia. Room air patient was oxygen saturation 92%. Given elevated D-dimer and patient was more open to hospital procedures, patient was have CT angiogram of the chest. -social service consultation for home O2, given patient's severe hypoxia on ABG. -pacemaker interrogation: Patient has one year left of pacemaker life. Recommend assessing patient for possible upgrade to ICD or replacement of pacemaker within the near future -continue NOAC -continue DuoNebs and Pulmicort -reassess for discharge in a.m. if patient's volume overload has improved clinically. Total time spent with patient discussing and formulating plan of care: 35 minutes. This medical document was created using an electronic medical record system with [employer] dictation system. Although this document has been carefully reviewed, there may still be some phonetic and typographical errors. These areas are purely typographical due to imperfections of the software programs, and do not reflect any compromise in the patient's medical care. Plan discussed with: Patient, Other (RN) My Orders Orders - MANNIE KAY NP Procedure Category Date Status Time Code Status CODE 08/14/24 Transmitted 07:01 Abg W/ Co-Ox RT 08/14/24 Logged 14:34 Ss Eval For Home CONS 08/14/24 Transmitted Oxygen Date of Service: Aug 14, 2024 Billing Provider: MANNIE KAY NP Common Visit Codes: [id number] INP/OBS CARE(HIGH) MANNIE KAY NP Aug 14, 2024 15:23
[2024-08-15] VITALS (11 sets, daily range): BP systolic 148–151; BP diastolic 50–91; PULSE 70–85; RESP 17–20; TEMP 97.9–98.5; O2SAT 97–100
[2024-08-15] MEDS ORDERED: IOHEXOL 350 MG/ML 100ML IJ ONE (10:43)
--- NOTE | 2024-08-15 11:26 | DVH ---
CTA Chest with intravenous contrast INDICATION: Hypoxia, rule out PE COMPARISON: None TECHNIQUE: Multidetector spiral CTA of the chest was performed of the chest with intravenous contrast . PULMONARY ANGIOGRAPHY PROTOCOL was utilized using a bolus-tracking technique centered on the main p ulmonary artery. Axial, coronal and sagittal multiplanar and MIP reformats were performed. CONTRAST: Type of contrast: Omni 350 Contrast injected: 99 ml Radiation dose : Chest: CTDI volume is 61 mGy. Dose-length product is 1733 mGy*cm The dose indicators for CT are the volume computed Tomography (CT) dose Index (CTDIvol) and the dose Length product (DLP), and are measured in units of mGy and mGy-cm, respectively. These indicators are not patient dose, but values generated from the CT scanner acquisition factors. The report includes radiation exposure data for exposures received during this examination. Findings: Pulmonary artery: Limited by motion. No large central or large segmental pulmonary embolism. Lower neck: Normal thyroid. Lungs: Atelectasis and consolidation in both lungs right greater than left. Heart/Vascular Structures: Moderate cardiomegaly. Small pericardial effusion. Lymph Nodes: No adenopathy Pleura: Large right and small left pleural effusions. Musculoskeletal: No acute osseous abnormality. Soft tissues: Diffuse anasarca. Upper abdomen: Limited portions of the upper abdomen are unremarkable. IMPRESSION: 1. Limited by motion. No large central pulmonary embolism. 2. Large right and small left pleural effusions. Bilateral atelectasis and consolidation. Moderate c ardiomegaly. Diffuse anasarca. Suspect congestive failure and/or fluid overload. Clinical correlati on and continued follow-up is recommended. HS:Y
[2024-08-15 12:04] LABS: Potassium 3.6 mmol/L (3.5-5.1); Sodium 138 mmol/L (136-145)
[2024-08-15 12:05] LABS: Anion Gap 3 (5-15); Calcium 8.8 mg/dL (8.7-10.4)
[2024-08-15 12:10] LABS: BUN/Creatinine Ratio 23.6 (10.0-20.0); Blood Urea Nitrogen 21 mg/dL (9-23)
[2024-08-15 12:12] LABS: Carbon Dioxide 38 mmol/L (20-31); Chloride 97 mmol/L (98-107); Glucose 124 mg/dL (74-106)
--- NOTE | 2024-08-15 13:29 | DVHPN2 ---
Subjective Continues to report having shortness of breath, bilateral lower extremity swelling Reviewed: Care Plan, H&P, Labs, Medications, Previous Orders Changes from previous H/P or p: No Changes Cardiovascular: Orthopnea, Edema Respiratory: Cough, Shortness of breath, SOB with excertion, Sputum Objective Vitals Vital Signs Date Time Temp Pulse Resp B/P (MAP) Pulse Ox O2 Delivery O2 Flow Rate FiO2 08/15/24 10:05 81 120/76 08/15/24 10:00 99 Nasal Cannula 3.0 08/15/24 10:00 32 08/15/24 09:36 18 08/15/24 05:00 98.5 98.5 Intake/Output Intake and Output 08/15/24 07:00 Intake Total 1240 ml Output Total 4500 ml Balance -3260 ml Intake Oral 1130 ml IV Total 110 ml Output Urine Total 4500 ml # Voids 3 # Bowel Movements 1 General Appearance: Alert, Oriented X3, Cooperative, No acute distress HEENT: PERRLA Lungs: Other (rhonchi ) Cardiovascular: Regular rate, Other (Atrial fibrillation with V paced rhythm) Abdomen: Normal bowel sounds Extremities: Other (bilateral lower extremity edema ) Neuro: Normal gait, Normal speech Skin: Dry, Intact Psych/Mental Status: Mental status NL, Mood NL Medications Current Medications Medications Dose Ordered Sig/Toni Route Start Time Stop Time Status Last Admin Dose Admin Carvedilol 3.125 mg Q12HR PO 08/07/24 22:00 08/15/24 10:05 3.125 MG Lisinopril 5 mg DAILY PO 08/08/24 10:00 08/15/24 10:03 5 MG Aspirin 162 mg DAILY PO 08/08/24 10:00 08/15/24 09:55 162 MG Atorvastatin Calcium 10 mg HS PO 08/07/24 22:00 08/14/24 21:45 10 MG Ondansetron HCl 4 mg Q4HP PRN IV 08/07/24 19:30 Acetaminophen 650 mg Q6HP PRN PO 08/07/24 19:30 Nitroglycerin 0.4 mg Q5MINP PRN SL 08/07/24 19:30 Morphine Sulfate 2 mg Q30M PRN IV 08/07/24 19:30 Guaifenesin/ Dextromethorphan 10 ml Q4HP PRN PO 08/08/24 00:15 Diagnostic Test (Pha) 1 strip ACHS 08/08/24 17:00 08/14/24 10:26 1 STRIP Insulin Human Regular ACHS SC 08/08/24 17:00 08/13/24 11:59 2 UNITS Dextrose 50 ml UD PRN IV 08/08/24 12:30 Spironolactone 25 mg DAILY PO 08/09/24 10:00 08/15/24 09:55 25 MG Empaglifozin 10 mg DAILY PO 08/09/24 10:00 08/15/24 09:55 10 MG Albuterol 2.5 mg Q6HWA NEB 08/09/24 12:00 08/15/24 09:28 2.5 MG Ipratropium [place] 0.5 mg Q6HWA NEB 08/09/24 12:00 08/15/24 09:28 0.5 MG Budesonide 0.5 mg BID NEB 08/09/24 22:00 08/15/24 09:28 0.5 MG Azithromycin 500 mg DAILY PO 08/11/24 10:00 08/15/24 09:55 500 MG Multivitamins 1 tab DAILY PO 08/12/24 10:00 08/15/24 09:54 1 TAB Bumetanide 1 mg BIDD PO 08/15/24 10:15 Potassium Chloride 20 meq DAILY PO 08/15/24 10:15 Laboratory Results Laboratory Tests 08/11/24 09:38 08/15/24 11:28 Chemistry Test 08/15/24 11:28 Calcium Level 8.8 mg/dL (8.7-10.4) Urinalysis Test 08/07/24 23:30 Urine Color Yellow (Yellow) Urine Clarity Clear (Clear) Urine pH 5.5 (5.0-9.0) Urine Specific [place] 1.015 (1.001-1.035) Urine Protein Negative (Negative) Urine Ketones Negative (Negative) Urine Blood Negative /uL (Negative) Urine Nitrite Negative (Negative) Urine Bilirubin Negative (Negative) Urine Urobilinogen Normal mg/dL (Negative) Urine Leukocyte Esterase Negative /uL (Negative) Urine RBC 1 /hpf (0 - 3) Urine WBC 1 /hpf (0 - 3) Urine Squamous Epithelial Cells None seen /hpf (<5) Urine Bacteria None seen /hpf (None Seen) Urine Glucose Normal mg/dL (Normal) Blood Gas Results Test 08/14/24 14:55 Arterial Blood pH 7.460 (7.350-7.450) FiO2 % 21.0 Labs and/or images reviewed: Labs reviewed by me, Image(s) reviewed by me Assessment/Plan Assessment/Plan Impression: -acute decompensated systolic heart failure with ejection fraction 40% -atrial fibrillation -obesity -nicotine dependence -COPD with probable exacerbation -acute hypoxic respiratory failure -primary hypertension -dyslipidemia Plan: Events: CT angiogram of the chest negative for PE. Did reveal large right pleural effusion. Discussed with the patient. Patient verbalized understanding in his consenting for thoracentesis. -stop Lasix drip, transitioned to Bumex p.o. -continue goal-directed medical therapy for heart failure -continue NOAC -continue DuoNebs and Pulmicort -social human services assistants for home O2 -IR consultation for thoracentesis Total time spent with patient discussing and formulating plan of care: 35 minutes. This medical document was created using an electronic medical record system with [employer] dictation system. Although this document has been carefully reviewed, there may still be some phonetic and typographical errors. These areas are purely typographical due to imperfections of the software programs, and do not reflect any compromise in the patient's medical care. Plan discussed with: Patient, Other (RN) My Orders Orders - MANNIE KAY NP Procedure Category Date Status Time Abg W/ Co-Ox RT 08/14/24 Logged 14:34 Ss Eval For Home CONS 08/14/[address] Angio Chest CT 08/15/24 Resulted Contrast 07:00 Bumetanide Tablet PHA 08/15/24 In Process (Bumex Tablet) 10:15 Potassium Er Tablet PHA 08/15/24 In Process (Klor-Con Tablet) 10:15 * Radiologist Consult CONS 08/15/24 Verified 13:26 Date of Service: Aug 15, 2024 Billing Provider: MANNIE KAY NP Common Visit Codes: [id number] INP/OBS CARE(HIGH) MANNIE KAY NP Aug 15, 2024 13:29
[2024-08-15] MEDS: BUMETANIDE 1 MG TAB PO SCH (13:52)
[2024-08-15] MEDS: POTASSIUM CHL 20 Meq TABLET PO SCH (13:53)
--- NOTE | 2024-08-15 15:36 | DVH ---
Left Chest Sonogram Clinical history: CHECK FOR FLUID Technique: Limited sonographic evaluation of the left chest was performed. Findings/Impression: There is a no left pleural effusion. Right chest not evaluated secondary to patient discomfort.
[2024-08-16] VITALS (9 sets, daily range): BP systolic 116–136; BP diastolic 68–86; PULSE 72–89; RESP 16–20; TEMP 97.3–97.9; O2SAT 95–100
[2024-08-16] MEDS ORDERED: APIX5TAB PO (09:54)
[2024-08-16] MEDS ORDERED: LISI-275 PO (09:54)
[2024-08-16] MEDS ORDERED: POTA8TAB38 PO (09:54)
[2024-08-16] MEDS ORDERED: BUM1T PO (09:54)
[2024-08-16] MEDS ORDERED: CARV-214 PO (09:54)
[2024-08-16] MEDS ORDERED: EMPA1TAB PO (09:54)
[2024-08-16] MEDS ORDERED: SPIR25TA PO (09:54)
--- NOTE | 2024-08-16 10:02 | DVHDS2 ---
Discharge Summary Date of Admission Aug 07, 2024 at 19:27 Date of Discharge: Aug 16, 2024 Admitting Diagnosis Acute on chronic congestive heart failure Labs/Diagnostic Data: Laboratory Results Test 08/15/24 11:28 08/14/24 14:55 08/14/24 11:39 08/11/24 09:38 Sodium Level 138 mmol/L (136-145) Potassium Level 3.6 mmol/L (3.5-5.1) Chloride Level 97 mmol/L (98-107) Carbon Dioxide Level 38 mmol/L (20-31) Anion Gap 3 (5-15) Blood Urea Nitrogen 21 mg/dL (9-23) Creatinine 0.89 mg/dL (0.700-1.30) Glomerular Filtration Rate Calc 90 mL/min (>90) BUN/Creatinine Ratio 23.6 (10.0-20.0) Serum Glucose 124 mg/dL (74-106) Calcium Level 8.8 mg/dL (8.7-10.4) Blood Gas Specimen Type Arterial Blood Gas Sample Site Right brachial Blood Gas Patient Temperature 37.0 Arterial Blood Date Drawn [id number] Arterial Blood pH 7.460 (7.350-7.450) Arterial Blood Partial Pressure CO2 51.9 mmHg (35.0-48.0) Arterial Blood Partial Pressure O2 37.3 mmHg (83.0-108.0) Arterial Blood HCO3 36.1 mmol/L (21.0-28.0) Arterial Blood Oxygen Saturation 69.6 % (94.0-98.0) Arterial Blood Base Excess 10.5 mmol/L (-2.0-3.0) Arterial Blood Oxyhemoglobin 68.8 % (94.0-98.0) Arterial Blood Carboxyhemoglobin 0.8 % (0.5-1.5) Arterial Blood Methemoglobin 0.3 % (0.0-1.5) Moustapha Test N/a Blood Gas Total Hemoglobin 13.40 g/dL (13.5-17.5) Blood Gas Modality Room air FiO2 % 21.0 Blood Gas Critical Value Read Back Yes Blood Gas Notified Whom zelalem Kay np Blood Gas Notified Time [id number] Blood Gas Notified By Dip Filler sánchez leong POC Glucose 126 mg/dl (70-106) White Blood Count 5.3 10^3/uL (4.4-10.8) Red Blood Count 3.71 10^6/uL (4.5-5.90) Hemoglobin 12.0 g/dL (13.5-17.5) Hematocrit 36.1 % (41.0-53.0) Mean Corpuscular Volume 97.2 fL (80.0-100.0) Mean Corpuscular Hemoglobin 32.3 pg (28.0-32.0) Mean Corpuscular Hemoglobin Concent 33.2 g/dL (32.0-36.0) Red Cell Distribution Width 14.4 % (11.8-14.3) Platelet Count 255 10^3/uL (140-450) Mean Platelet Volume 7.0 fL (6.9-10.8) Neutrophils (%) (Auto) 69.8 % (37.0-80.0) Lymphocytes (%) (Auto) 16.8 % (10.0-50.0) Monocytes (%) (Auto) 12.6 % (0.0-12.0) Eosinophils (%) (Auto) 0.1 % (0.0-7.0) Basophils (%) (Auto) 0.7 % (0.0-2.0) Neutrophils # (Auto) 3.7 10 ^3/uL (1.6-8.6) Lymphocytes # (Auto) 0.9 10 ^3/uL (0.4-5.4) Monocytes # (Auto) 0.7 10 ^3/uL (0-1.3) Eosinophils # (Auto) 0 10 ^3/uL (0-0.8) Basophils # (Auto) 0 10 ^3/uL (0-0.2) Nucleated Red Blood Cells 0.0 % Phosphorus Level 4.2 mg/dL (2.4-5.1) Magnesium Level 2.1 mg/dL (1.6-2.6) Ammonia 33 umol/L (11-32) Test 08/10/24 10:35 08/08/24 14:40 08/08/24 05:22 08/07/24 23:30 B-Type Natriuretic Peptide 604.26 pg/mL (0-100) Influenza Type A Antigen Negative (Negative) Influenza Type B Antigen Negative (Negative) SARS-CoV-2 Antigen (Rapid) Negative (NEGATIVE) Hemoglobin A1c 6.7 % A1C (<5.7) Triglycerides Level 64 mg/dL (< 150) Cholesterol Level 95 mg/dL (< 200) LDL Cholesterol 33 mg/dL (< 100) HDL Cholesterol 50 mg/dL (40-59) Thyroid Stimulating Hormone (TSH) 1.27 uIU/mL (0.55-4.78) Urine Color Yellow (Yellow) Urine Clarity Clear (Clear) Urine pH 5.5 (5.0-9.0) Urine Specific [place] 1.015 (1.001-1.035) Urine Protein Negative (Negative) Urine Ketones Negative (Negative) Urine Blood Negative /uL (Negative) Urine Nitrite Negative (Negative) Urine Bilirubin Negative (Negative) Urine Urobilinogen Normal mg/dL (Negative) Urine Leukocyte Esterase Negative /uL (Negative) Urine RBC 1 /hpf (0 - 3) Urine WBC 1 /hpf (0 - 3) Urine Squamous Epithelial Cells None seen /hpf (<5) Urine Bacteria None seen /hpf (None Seen) Urine Glucose Normal mg/dL (Normal) Test 08/07/24 18:35 08/07/24 15:45 Troponin I High Sensitivity 109 ng/L (</=54) Prothrombin Time 13.0 sec (9.3-11.8) Prothrombin Time INR 1.25 (0.9-1.15) Activated Partial Thromboplast Time 28.3 SEC (24.5-34.5) D-Dimer, Quantitative 1.83 mg/L FEU (0.0-0.49) Total Bilirubin 0.5 mg/dL (0.2-1.0) Aspartate Amino Transferase (AST) 28 U/L (13-40) Alanine Aminotransferase (ALT) 31 U/L (7-40) Alkaline Phosphatase 82 U/L (46-116) Total Protein 6.6 g/dL (5.7-8.2) Albumin 3.4 g/dL (3.2-4.8) Other Laboratory Tests 08/15/24 11:28 08/11/24 09:38 Brief Hx & Hospital Course: History of Present Illness 73-year-old with a history of congestive heart failure presents for evaluation bilateral leg swelling. Patient reports a three day history worsening bilateral lower extremity swelling. He currently denies chest pain or shortness for breath. Denies a productive cough. Abdominal pain. Course of hospitalization: Patient had cardiology consultation as well as pacemaker interrogation. Patient was found to have ejection fraction 40%. Patient was found to have a pacemaker with only one year of battery life left. At this time patient was not want his pacemaker exchange. Patient was placed on IV Lasix, with adequate diuresis. Patient continues to have some swelling to his lower extremities, which has been a challenge regarding the patient in his diet given his family continues to bring food and including chips such as Cheetos as well as other high sodium foods. Patient was also started on goal-directed medical therapy including beta-yumiko, NIRU inhibitor, spironolactone, Jardiance. CT angiogram of the chest is negative for PE. Patient was found to have pleural effusion, but is being noncooperative with performing ultrasounds. At this time he will be discharged home on home O2 at 2 liters/minute as well as with a walker. He was instructed to follow up with his PCP to have continued monitoring of his heart failure as well as obtain cardiology referral for pacemaker replacement as soon as possible. He is agreeable with discharge plan. All questions answered. Physical examination General: Alert and Oriented x3. No acute distress. Well-nourished. Morbid obesity Eyes: EOMI. Anicteric. HENT: Moist mucous membranes. Lungs: Clear to auscultation bilaterally. No accessory muscle use. Cardiovascular: Regular rate and rhythm. No murmur. No JVD. Abdomen: Soft, non-tender and non-distended. No palpable masses. Extremities: No edema. Non-tender. Skin: No rashes or lesions. Warm. Neurologic: No focal neurological deficits. CN II-XII grossly intact, but not individually tested. Psychiatric: Cooperative. Appropriate mood and affect. Total time spent with patient discussing and formulating plan of care: 35 minutes. This medical document was created using an electronic medical record system with [employer] dictation system. Although this document has been carefully reviewed, there may still be some phonetic and typographical errors. These areas are purely typographical due to imperfections of the software programs, and do not reflect any compromise in the patient's medical care. Consults/Reason for consult Cardiology: Decompensated heart failure Condition at Discharge: Poor Final Diagnosis/Problems List Acute hypoxic respiratory failure Secondary Diagnosis: -acute decompensated systolic heart failure with ejection fraction 40% -obesity -nicotine dependence -COPD with probable exacerbation -acute hypoxic respiratory failure -primary hypertension -dyslipidemia -alcoholism -metabolic encephalopathy -medication noncompliance Discharge Disposition: Home Discharge Instruct/Medications Diet: Cardiac 2g Na,low cholest Activity: No Restrictions, As Tolerated Activity comment: Use walker Follow Up/Referral: Follow up with PCP and primary cleaner wall Medications: Per medication reconciliation form 36 Discharge Statement: "Patient was advised to return to the ER or call 911 if any headaches, dizziness, shortness of breath, chest pain, abdominal pain, bleeding, fevers, or worsening of medical condition. Patient was counseled about treatment plan, medications, possible side effects, patientverbalized understanding. All questions were answered to the best of my ability. This discharge took greater then 30 minutes in planning, reviewing documentation, counseling the patient, and discussing with other team members." ASSESSMENT ASSESSMENT Assessment Acute hypoxic respiratory failure Date of Service: Aug 16, 2024 Billing Provider: MANNIE KAY NP Common Visit Codes: 33827-LNL/OBS DISCH DAY >30min MANNIE KAY NP Aug 16, 2024 10:02
[2024-08-16] MEDS ORDERED: BUDESONIDE (INHALATION) 0.5 MG/2 ML NEB ONE (19:10)
== END 2024-08-16 17:45 | disposition home or self-care (01) | DRG 280 ==
LOC: ER 14:47 → TELE 19:27 → TELE-WESTW 08-08 23:39
PROVIDERS: ADMIT Nurse Practitioner; ATTEND Nurse Practitioner Acute Care
DX: I11.0 Hypertensive heart disease with heart failure (principal); G93.41 Metabolic encephalopathy; I21.A1 Myocardial infarction type 2; I50.23 Acute on chronic systolic (congestive) heart failure; J96.21 Acute and chronic respiratory failure with hypoxia; J44.1 Chronic obstructive pulmonary disease with (acute) exacerbation; Z68.41 Body mass index [BMI] 40.0-44.9, adult; Z20.822 Contact with and (suspected) exposure to COVID-19; E78.5 Hyperlipidemia, unspecified; I27.20 Pulmonary hypertension, unspecified; F17.200 Nicotine dependence, unspecified, uncomplicated; E66.01 Morbid (severe) obesity due to excess calories; E11.9 Type 2 diabetes mellitus without complications; N49.2 Inflammatory disorders of scrotum; I48.0 Paroxysmal atrial fibrillation; N43.3 Hydrocele, unspecified; Z95.0 Presence of cardiac pacemaker; Z86.73 Personal history of transient ischemic attack (TIA), and cerebral infarction without residual deficits
CPT/HCPCS: 36415; 36600; 70450; 71045; 71275; 76604; 76870; 80048; 80053; 80061; 81001; 82140; 82805; 82962; 83036; 83735; 83880; 84100; 84443; 84484; 85025; 85379; 85610; 85730; 87426; 87804; 93005; 93306; 93970; 94640; 97110; 97116; 97163; 97530; G0378; J1815

== ENCOUNTER 2024-09-12 10:09 | Emergency (ER) | payer BC, MEDICAID, MEDICARE ==
[~2024-09-12] VITALS: Ht 188 cm; Wt 116.0 kg
[~2024-09-12 10:09] MED LIST: BUM1T PO; CARV-214 PO; EMPA1TAB PO; LISI-275 PO; POTA8TAB38 PO; SPIR25TA PO
[2024-09-12 10:34] VITALS: BP 127/85; PULSE 68; RESP 20; O2SAT 92
== END 2024-09-12 12:07 | disposition left against medical advice (07) ==
LOC: ER 10:09
DX: R06.02 Shortness of breath (principal); Z53.21 Procedure and treatment not carried out due to patient leaving prior to being seen by health care provider